=== PATIENT | male | born 1995 | race Caucasian/White ===

== ENCOUNTER 2017-04-09 18:08 | Emergency (ER) | payer OTHER ==
[2017-04-09 18:19] VITALS: BP 149/80; PULSE 68; O2SAT 99
[2017-04-09] MEDS ORDERED: Tylenol #3 Tablet PO ONE (18:31)
--- NOTE | 2017-04-09 18:38 | ERPHSYRPT ---
- History of Present Illness Time Seen by Provider: 04/09/17 18:20 Source: patient Exam Limitations: clinical condition Patient Subjective Stated Complaint: PT STATES HE HAS A TOOTHACHE RELATED TO A BROKEN TOOTH ON HIS RIGHT UPPER SIDE. STATES THE PAIN IS SEVERE AND HAS WOKEN HIM FROM SLEEP. PT REPORTS CALLING SEVERAL DENTISTS TODAY AND STATES NONE CAN SEE HIM UNTIL MAY AT THE EARLIEST. Triage Nursing Assessment: PT IS AOX3, AMBULATORY TO COT WITHOUT DIFFICULTIES, SKIN IS PWD, RESPS ARE EASY AND NON LABORED. A BROKEN TOOTH IS NOTED TO THE RIGHT UPPER MOUTH. DENTAL CARRIES NOTED THROUGHOUT MOUTH. NO REDNESS OR INFLAMMATION NOTED TO THE GUM. PT REPORTS PAIN TO THE MOUTH THAT RADIATES UP ACROSS HIS CHEEK TO HIS EYE. Physician History: PATIENT COMPLAINS OF TOOTHACHE X 3 DAYS, DENIES FEVER, DIFFICULTY BREATHING OR SWALLOWING. Timing/Duration: gradual onset Severity: severe ENT Location: dental Prearrival Treatment: no prearrival treatment Modifying Factors: Improves With: nothing Associated Symptoms: jaw pain Allergies/Adverse Reactions: No Known Drug Allergies Allergy (Verified 04/09/17 18:19) Hx Tetanus, Diphtheria Vaccination/Date Given: No Hx Influenza Vaccination/Date Given: No Hx Pneumococcal Vaccination/Date Given: No Immunizations Up to Date: Yes - Review of Systems Constitutional: No Symptoms Eyes: No Symptoms Ears, Nose, & Throat: Mouth Pain Respiratory: No Symptoms Cardiac: No Symptoms - Past Medical History Pertinent Past Medical History: No Psycho-Social History: Depression - Past Surgical History Past Surgical History: Yes Gastrointestinal: Appendectomy - Social History Smoking Status: Current every day smoker How long have you smoked: 10 Exposure to second hand smoke: Yes Drug Use: none Patient Lives Alone: Yes - Nursing Vital Signs Nursing Vital Signs: Initial Vital Signs Temperature 98.5 F Temperature Source Oral Pulse Rate 68 Respiratory Rate 20 Blood Pressure [Right Arm] 149/80 Pain Intensity 10 - Physical Exam General Appearance: mild distress Eye Exam: bilateral eye: PERRL, EOMI Nasal Exam: normal inspection Throat Exam: dental tenderness (CARES BILATE UPPER 1ST AND 2ND MOLARS, NO GINGIVAL SWELLING) Neck Exam: normal inspection, non-tender Neurologic Exam: alert, oriented x 3 SpO2: 99 Oxygen Delivery: Room Air - Progress Progress: pain not gone completely Progress Note: 04/09/17 18:34 PATIENT ADMINISTERED TYLENOL #3 ORALLY Counseled pt/family regarding: diagnosis, need for follow-up - Departure Time of Disposition: 18:45 Departure Disposition: Home Clinical Impression: DENTAL CARIES Condition: Stable Critical Care Time: No Instructions: Tooth Decay Additional Instructions: ANTIBIOTIC AMOXICILLIN 500MG EVERY 8 HOURS FOR 10 DAYS. TYLENOL #3 EVERY 4 HOURS FOR PAIN. FOLLOWUP WITH YOUR DENTIST AND PRIMARY CARE PHYSICIAN. Prescriptions: Codeine Phosphate/APAP #3 [Tylenol #3 Tablet] 1 tab PO Q4H PRN PRN #12 tablet PRN Reason: Pain Amoxicillin 500 mg PO TID #30 tablet
[2017-04-09] MEDS ORDERED: Tylenol #3 Tablet ONE ×2 (18:40→18:46)
== END 2017-04-09 18:59 | disposition home or self-care (01) ==
LOC: ED 18:08
DX: K02.9 Dental caries, unspecified (principal)
CPT/HCPCS: 99284; A9270-GY

== ENCOUNTER 2018-05-25 11:45 | Emergency (ER) | payer OTHER ==
--- NOTE | 2018-05-25 12:09 | ERPHSYRPT ---
- History of Present Illness Time Seen by Provider: 05/25/18 11:59 Historian: patient, family Exam Limitations: no limitations Patient Subjective Stated Complaint: pt reports getting teeth pulled tessy 4 days ago-states that since then he has felt tired and his abd has hurt-reports his last bm this morning unsure if it was hard or diarrhea-denies difficulty with urination-denies fever Triage Nursing Assessment: pt pink warm and [id number] tender to palp-resp easy and nonlabored Physician History: The patient is a 22-year-old male with his mother complaining of weakness, abdominal pain, not feeling well. He had 4 teeth pulled 4 days ago area he has been taking amoxicillin as prescribed. He took who for the first 2 days but then quit taking them yesterday. He ate solid food first time last night his abdomen began hurting yesterday. He states his looked in his mouth and when she did, he became very sweaty and pale. That has resolved. He thinks he' s been having fever and chills. He had a bowel movement. His past medical history significant for an appendectomy at age 5. Timing/Duration: day(s) (2), gradual onset, worse Activities at Onset: none Quality: fullness Abdominal Pain Onset Location: generalized abdomen Pain Radiation: no radiation Severity of Pain-Max: moderate Severity of Pain-Current: moderate Modifying Factors: Improves With: nothing Associated Symptoms: fatigue, weakness Previous symptoms: no prior history Allergies/Adverse Reactions: No Known Drug Allergies Allergy (Verified 05/25/18 11:56) Home Medications: Amoxicillin 500 mg Cap [Amoxil 500 mg] 500 mg PO UD 05/25/18 [History] Hydrocodone/Acetaminophen [Hydrocodone-Acetamin 5-325 mg] 1 tab PO UD 05/25/18 [ History] Hx Tetanus, Diphtheria Vaccination/Date Given: Yes Hx Influenza Vaccination/Date Given: No Hx Pneumococcal Vaccination/Date Given: No Immunizations Up to Date: Yes - Review of Systems Constitutional: Weakness Eyes: No Symptoms Ears, Nose, & Throat: No Symptoms Respiratory: No Cough, No Dyspnea Cardiac: No Symptoms Abdominal/Gastrointestinal: Abdominal Pain Genitourinary Symptoms: No Dysuria Musculoskeletal: No Back Pain, No Neck Pain Skin: No Rash Neurological: No Dizziness, No Focal Weakness, No Sensory Changes Psychological: No Symptoms Endocrine: No Symptoms Hematologic/Lymphatic: No Symptoms Immunological/Allergic: No Symptoms All Other Systems: Reviewed and Negative - Past Medical History Pertinent Past Medical History: No Psycho-Social History: Depression - Past Surgical History Past Surgical History: Yes Gastrointestinal: Appendectomy - Social History Smoking Status: Current every day smoker How long have you smoked: yrs Exposure to second hand smoke: Yes Drug Use: none Patient Lives Alone: Yes - Nursing Vital Signs Nursing Vital Signs: Initial Vital Signs Temperature 98.3 F 05/25/18 11:53 Pulse Rate 60 05/25/18 11:53 Respiratory Rate 18 05/25/18 11:53 Blood Pressure 140/73 05/25/18 11:53 O2 Sat by Pulse Oximetry 99 05/25/18 11:53 Pain Scale Pain Intensity 0 - Physical Exam General Appearance: mild distress Eye Exam: PERRL/EOMI, eyes nml inspection Ears, Nose, Throat Exam: pharynx normal, moist mucous membranes, other (healing gums from recent teeth extraction) Neck Exam: normal inspection, non-tender, supple, full range of motion Respiratory Exam: normal breath sounds, lungs clear, No respiratory distress Cardiovascular Exam: regular rate/rhythm, normal heart sounds Gastrointestinal/Abdomen Exam: tenderness (epigastric and RUQ) Rectal Exam: not done Back Exam: normal inspection, normal range of motion, No CVA tenderness, No vertebral tenderness Extremity Exam: normal inspection, normal range of motion, pelvis stable Neurologic Exam: alert Skin Exam: normal color, warm, dry SpO2 Interpretation: normal SpO2: 99 Oxygen Delivery: Room Air - Radiology Exams Abdomen X-ray Interpretation: Interpreted by me, Negative Ordered Tests: Active Orders 24 hr Category Date Time Status Clean Catch Urine Specimen STAT Care 05/25/18 12:14 Active IV Insertion STAT Care 05/25/18 12:14 Active KUB Stat Exams 05/25/18 12:14 Taken CBC W DIFF Stat Lab 05/25/18 12:45 Completed CMP Stat Lab 05/25/18 12:45 Completed LIPASE Stat Lab 05/25/18 12:45 Completed Lactic Acid Stat Lab 05/25/18 12:40 Completed Manual Differential NC Stat Lab 05/25/18 12:45 Completed UA W/ MICROSCOPIC Stat Lab 05/25/18 12:37 Completed Urine Triage Profile Stat Lab 05/25/18 12:37 Received Medication Summary Discontinued Medications Generic Name Dose Route Start Last Admin Trade Name Lukas PRN Reason Stop Dose Admin Famotidine 20 mg 05/25/18 12:14 05/25/18 12:46 Pepcid 20 Mg Vial IV 05/25/18 12:15 20 mg STAT ONE Administration Famotidine Confirm 05/25/18 12:41 Pepcid 20 Mg Vial Administered 05/25/18 12:42 Dose 20 mg IV .STK-MED ONE Sodium Chloride 1,000 mls @ 999 mls/hr 05/25/18 12:14 05/25/18 12:43 Sodium Chloride 0.9% 1000 Ml IV 05/25/18 13:14 999 mls/hr .Q1H1M STA Administration Sodium Chloride Confirm 05/25/18 12:41 Sodium Chloride 0.9% 1000 Ml Administered 05/25/18 12:42 Dose 1,000 mls @ ud .ROUTE .STK-MED ONE Ondansetron HCl 4 mg 05/25/18 12:14 05/25/18 12:45 Zofran 4 Mg/2 Ml Vial IV 05/25/18 12:15 4 mg STAT ONE Administration Ondansetron HCl Confirm 05/25/18 12:40 Zofran 4 Mg/2 Ml Vial Administered 05/25/18 12:41 Dose 4 mg .ROUTE .STK-MED ONE Lab/Rad Data: Laboratory Result Diagrams 05/25/18 12:45 05/25/18 12:45 Laboratory Results 05/25/18 05/25/18 05/25/18 Range/Units 12:45 12:45 12:40 WBC 5.3 (4.0-10.5) K/mm3 RBC 5.46 (4.1-5.6) M/mm3 Hgb 16.3 (12.5-18.0) gm/dl Hct 47.6 (42-50) % MCV 87.2 (78-100) fl MCH 29.9 (26-32) pg MCHC 34.2 (32-36) g/dl RDW 13.3 (11.5-14.0) % Plt Count 172 (150-450) K/mm3 MPV 13.5 H (6-9.5) fl Absolute Granulocytes 2.51 (1.4-6.9) Sodium 144 (137-145) mmol/L Potassium 4.0 (3.5-5.1) mmol/L Chloride 106 (98-107) mmol/L Carbon Dioxide 27 (22-30) mmol/L Anion Gap 14.9 (5-15) MEQ/L BUN 7 L (9-20) mg/dL Creatinine 0.75 (0.66-1.25) mg/dL Estimated GFR > 60.0 ML/MIN Glucose 100 (74-106) mg/dL Lactic Acid 0.9 (0.4-2.0) Calcium 9.8 (8.4-10.2) mg/dL Total Bilirubin 0.50 (0.2-1.3) mg/dL AST 13 L (17-59) U/L ALT 14 (0-50) U/L Alkaline Phosphatase 46 (38-126) U/L Serum Total Protein 7.6 (6.3-8.2) g/dL Albumin 4.9 (3.5-5.0) g/dL Lipase 48 (23-300) U/L Ur Collection Type Urine Color (YELLOW) Urine Appearance (CLEAR) Urine pH (5-6) Ur Specific [place] (1.005-1.025) Urine Protein (Negative) Urine Ketones (NEGATIVE) Urine Blood (0-5) Marlon/ul Urine Nitrite (NEGATIVE) Urine Bilirubin (NEGATIVE) Urine Urobilinogen (0-1) mg/dL Ur Leukocyte Esterase (NEGATIVE) Ur Epithelial Cells (FEW) /HPF Amorphous Crystals (NEGATIVE) /HPF Urine Culture Reflexed (NO) Urine Glucose (NEGATIVE) mg/dL Urine Opiates Level (NEGATIVE) Ur Methadone (NEGATIVE) Urine Barbiturates (NEGATIVE) Ur Phencyclidine (PCP) (NEGATIVE) Urine Amphetamine (NEGATIVE) U Benzodiazepine Level (NEGATIVE) Urine Cocaine (NEGATIVE) Urine Marijuana (THC) (NEGATIVE) Specimen Received 05/25/18 05/25/18 Range/Units 12:37 12:37 WBC (4.0-10.5) K/mm3 RBC (4.1-5.6) M/mm3 Hgb (12.5-18.0) gm/dl Hct (42-50) % MCV (78-100) fl MCH (26-32) pg MCHC (32-36) g/dl RDW (11.5-14.0) % Plt Count (150-450) K/mm3 MPV (6-9.5) fl Absolute Granulocytes (1.4-6.9) Sodium (137-145) mmol/L Potassium (3.5-5.1) mmol/L Chloride (98-107) mmol/L Carbon Dioxide (22-30) mmol/L Anion Gap (5-15) MEQ/L BUN (9-20) mg/dL Creatinine (0.66-1.25) mg/dL Estimated GFR ML/MIN Glucose (74-106) mg/dL Lactic Acid (0.4-2.0) Calcium (8.4-10.2) mg/dL Total Bilirubin (0.2-1.3) mg/dL AST (17-59) U/L ALT (0-50) U/L Alkaline Phosphatase (38-126) U/L Serum Total Protein (6.3-8.2) g/dL Albumin (3.5-5.0) g/dL Lipase (23-300) U/L Ur Collection Type VOID Urine Color YELLOW (YELLOW) Urine Appearance CLOUDY (CLEAR) Urine pH 8.0 (5-6) Ur Specific [place] 1.010 (1.005-1.025) Urine Protein NEGATIVE (Negative) Urine Ketones NEGATIVE (NEGATIVE) Urine Blood NEGATIVE (0-5) Marlon/ul Urine Nitrite NEGATIVE (NEGATIVE) Urine Bilirubin NEGATIVE (NEGATIVE) Urine Urobilinogen NORMAL (0-1) mg/dL Ur Leukocyte Esterase NEGATIVE (NEGATIVE) Ur Epithelial Cells FEW (FEW) /HPF Amorphous Crystals MANY (NEGATIVE) /HPF Urine Culture Reflexed NO (NO) Urine Glucose NEGATIVE (NEGATIVE) mg/dL Urine Opiates Level NEGATIVE (NEGATIVE) Ur Methadone NEGATIVE (NEGATIVE) Urine Barbiturates NEGATIVE (NEGATIVE) Ur Phencyclidine (PCP) NEGATIVE (NEGATIVE) Urine Amphetamine NEGATIVE (NEGATIVE) U Benzodiazepine Level NEGATIVE (NEGATIVE) Urine Cocaine NEGATIVE (NEGATIVE) Urine Marijuana (THC) POSITIVE (NEGATIVE) Specimen Received 05/25/2018 1300 - Progress Progress: improved - Departure Time of Disposition: 14:03 Departure Disposition: Home Clinical Impression: Abdominal pain Condition: Stable Critical Care Time: No Referrals: LILY HINTON MD [Primary Care Provider] - Additional Instructions: You had abdominal pain that we treated with Pepcid 20 mg and Zofran 4 mg by IV in the ER. You were also given IV fluids in the ER. Continue to take Zofran 4 mg ODT every 6 hours as needed. Follow-up with primary medical doctor on Sunday if her condition has not resolved completely. Prescriptions: Ondansetron ODT 4 MG [Zofran Odt 4 mg] 1 tab PO Q6H PRN PRN #10 tab.rapdis PRN Reason: Nausea/Vomiting
[2018-05-25] MEDS ORDERED: Zofran 4 MG/2 ML VIAL IV ONE (12:14)
[2018-05-25] MEDS ORDERED: Pepcid 20 MG VIAL IV ONE ×2 (12:14→12:41)
[2018-05-25] MEDS ORDERED: Sodium Chloride 0.9% 1000 ML 1,000 ML IV STA (12:14)
[2018-05-25] MEDS ORDERED: Zofran 4 MG/2 ML VIAL ONE (12:40)
[2018-05-25] MEDS ORDERED: Sodium Chloride 0.9% 1000 ML 1,000 ML ONE (12:41)
[2018-05-25 13:09] LABS: Granulocyte Absolute (ANC) 2.51 (1.4-6.9); Hematocrit 47.6 % (42-50); Hemoglobin 16.3 gm/dl (12.5-18.0); Mean Cell Volume 87.2 fl (78-100); Mean Corpuscular Hemoglobin 29.9 pg (26-32); Mean Corpuscular Hgb Concent. 34.2 g/dl (32-36); Mean Platelet Volume 13.5 fl (6-9.5); Platelet Count 172 K/mm3 (150-450); Red Blood Count 5.46 M/mm3 (4.1-5.6); Red Cell Distribution Width 13.3 % (11.5-14.0); White Blood Count 5.3 K/mm3 (4.0-10.5)
[2018-05-25 13:13] LABS: Amourphous Crystal MANY /HPF (NEGATIVE); Appearance CLOUDY (CLEAR); Bilirubin NEGATIVE (NEGATIVE); Blood NEGATIVE Ery/ul (0-5); Epithelial Cells FEW /HPF (FEW); Glucose NEGATIVE (NEGATIVE); Ketones NEGATIVE (NEGATIVE); Leukocyte Esterase NEGATIVE (NEGATIVE); Nitrite NEGATIVE (NEGATIVE); Protein,Urine Dip NEGATIVE (Negative); Urobilinogen NORMAL mg/dL (0-1)
[2018-05-25 13:33] LABS: ALBUMIN 4.9 g/dL (3.5-5.0); ALKALINE PHOSPHATASE 46 U/L (38-126); ANION GAP 14.9 MEQ/L (5-15); BLOOD UREA NITROGEN 7 mg/dL (9-20); CHLORIDE 106 mmol/L (98-107); Calcium 9.8 mg/dL (8.4-10.2); Carbon Dioxide 27 mmol/L (22-30); Creatinine 1 0.75 mg/dL (0.66-1.25); Glucose 100 mg/dL (74-106); LIPASE 48 U/L (23-300); SGOT/AST 13 U/L (17-59); SGPT/ALT 14 U/L (0-50); SODIUM 144 mmol/L (137-145); Total Protein 7.6 g/dL (6.3-8.2)
[2018-05-25 13:43] LABS: Amphetamine,Urine NEGATIVE (NEGATIVE); Barbiturate,Urine NEGATIVE (NEGATIVE); Benzodiazepine,Urine NEGATIVE (NEGATIVE); Cocaine,Urine NEGATIVE (NEGATIVE); Methadone,Urine NEGATIVE (NEGATIVE); Opiate,Urine NEGATIVE (NEGATIVE); PCP,Urine NEGATIVE (NEGATIVE); THC,Urine POSITIVE (NEGATIVE)
[2018-05-25 14:18] VITALS: BP 143/56; PULSE 60; O2SAT 97
[2018-05-25 14:55] LABS: BAND 2 % (0.0-2.0); Basophil 1 % (0.0-1.0); Lymphocytes 33 % (24-44); Monocyte 9 % (0.0-12.0); Neutrophils 55 % (36.-66.); Platelet Estimate NORMAL (NORMAL); Total Cells Counted 100
--- NOTE | 2018-05-25 21:27 | XRAY ---
Indication: Abdominal pain, nausea, and vomiting. Comparison: November 21, 2010. KUB again nonacute and nonobstructed. Solid organs and osseous structures unremarkable. No new/acute findings.
== END 2018-05-25 14:19 | disposition home or self-care (01) ==
LOC: ED 11:45
DX: R10.9 Unspecified abdominal pain (principal); Z98.818 Other dental procedure status
CPT/HCPCS: 36000; 36415; 74018; 80053; 80307; 81000; 83605; 83690; 85025; 96360; 96374; 96375; 99284; J2405

== ENCOUNTER 2018-06-15 10:52 | Emergency (ER) | payer OTHER ==
[2018-06-15] MEDS ORDERED: GI COCKTAIL 45 ML (Maalox/Lidocaine) PO ONE (11:06)
[2018-06-15] MEDS ORDERED: TORAdol 30 mg Injection IV ONE (11:06)
[2018-06-15] MEDS ORDERED: MAALOX ES 30 ML UNIT DOSE ONE (11:12)
[2018-06-15] MEDS ORDERED: XYLOCAINE HCl Viscous ONE (11:12)
--- NOTE | 2018-06-15 11:12 | ERPHSYRPT ---
- History of Present Illness Time Seen by Provider: 06/15/18 11:00 Historian: patient Exam Limitations: no limitations Patient Subjective Stated Complaint: cough and pain with breathing in chest x 3 days. Triage Nursing Assessment: alert and in no distress. SOB and pain in mid chest with breathing.. productive cough with yellow sputum. lungs clear bilaterally. Physician History: 23 y/o male comes to the ER with complaints of epigastric and left sided abdominal pain that strated 2 days ago. Pt describes the pain as sharp, constant , 7/10, worse with inspiration and pt has not taken any pain meds. Pt also admits to productive cough for the last 3 days. Pt denies any fever, chills, shortness of breath, palpitations or dizziness. Timing/Duration: day(s) Activities at Onset: none Quality: sharpness Abdominal Pain Onset Location: LUQ, epigastric Pain Radiation: no radiation Severity of Pain-Max: moderate Severity of Pain-Current: moderate Modifying Factors: Improves With: nothing Associated Symptoms: chest pain Previous symptoms: no prior history Allergies/Adverse Reactions: No Known Drug Allergies Allergy (Verified 05/25/18 11:56) Home Medications: Amoxicillin 500 mg Cap [Amoxil 500 mg] 500 mg PO UD 05/25/18 [History] Hydrocodone/Acetaminophen [Hydrocodone-Acetamin 5-325 mg] 1 tab PO UD 05/25/18 [ History] Hx Tetanus, Diphtheria Vaccination/Date Given: Yes Hx Influenza Vaccination/Date Given: No Hx Pneumococcal Vaccination/Date Given: No - Review of Systems Constitutional: No Fever, No Chills Eyes: No Symptoms Ears, Nose, & Throat: No Symptoms Respiratory: No Cough, No Dyspnea Cardiac: No Chest Pain, No Edema, No Syncope Abdominal/Gastrointestinal: Abdominal Pain, No Nausea, No Vomiting, No Diarrhea , No Constipation, No Hematochezia, No Melena Genitourinary Symptoms: No Dysuria Musculoskeletal: No Back Pain, No Neck Pain Skin: No Rash Neurological: No Dizziness, No Focal Weakness, No Sensory Changes Psychological: No Symptoms Endocrine: No Symptoms All Other Systems: Reviewed and Negative - Past Medical History Pertinent Past Medical History: Yes Psycho-Social History: Depression - Past Surgical History Past Surgical History: Yes Gastrointestinal: Appendectomy - Social History Smoking Status: Current every day smoker How long have you smoked: yrs Exposure to second hand smoke: No Drug Use: none Patient Lives Alone: No - Nursing Vital Signs Nursing Vital Signs: Initial Vital Signs Temperature 97.8 F 06/15/18 11:02 Pulse Rate 85 06/15/18 11:02 Respiratory Rate 20 06/15/18 11:02 Blood Pressure 136/76 06/15/18 11:02 O2 Sat by Pulse Oximetry 98 06/15/18 11:02 Pain Scale Pain Intensity 7 - Physical Exam General Appearance: no apparent distress, alert Eye Exam: PERRL/EOMI, eyes nml inspection Ears, Nose, Throat Exam: normal ENT inspection, pharynx normal, moist mucous membranes Neck Exam: normal inspection, non-tender, supple, full range of motion Respiratory Exam: normal breath sounds, lungs clear, No chest tenderness, No respiratory distress Cardiovascular Exam: regular rate/rhythm, normal heart sounds Gastrointestinal/Abdomen Exam: soft, normal bowel sounds, tenderness, No distention, No mass Back Exam: normal inspection, normal range of motion, No CVA tenderness, No vertebral tenderness Extremity Exam: normal inspection, normal range of motion, pelvis stable Neurologic Exam: alert, oriented x 3, cooperative, normal mood/affect, nml cerebellar function, sensation nml, No motor deficits Skin Exam: normal color, warm, dry SpO2: 98 Oxygen Delivery: Room Air - Course Nursing assessment & vital signs reviewed: Yes EKG Interpreted by Me: RATE, NORMAL AXIS, NORMAL INTERVALS, NORMAL QRS, NORMAL ST-T Ordered Tests: Active Orders 24 hr Category Date Time Status IV Insertion STAT Care 06/15/18 11:06 Active ABDOMEN 2 VIEW Stat Exams 06/15/18 11:32 Completed CHEST 2 VIEWS (PA AND LAT) Stat Exams 06/15/18 11:06 Completed AMYLASE Stat Lab 06/15/18 11:00 Completed CBC W DIFF Stat Lab 06/15/18 11:00 Completed CMP Stat Lab 06/15/18 11:00 Completed LIPASE Stat Lab 06/15/18 11:00 Completed Manual Differential NC Stat Lab 06/15/18 11:00 Completed TROPONIN Q3H Lab 06/15/18 11:00 Completed TROPONIN Q3H Lab 06/15/18 14:15 Ordered TROPONIN Q3H Lab 06/15/18 17:15 Ordered TROPONIN Q3H Lab 06/15/18 20:15 Ordered TROPONIN Q3H Lab 06/15/18 23:15 Ordered Medication Summary Discontinued Medications Generic Name Dose Route Start Last Admin Trade Name Freq PRN Reason Stop Dose Admin Al Hydrox/Mg Hydrox/Simethicone Confirm 06/15/18 11:12 Maalox Es 30 Ml Unit Dose Administered 06/15/18 11:13 Dose 30 ml .ROUTE .STK-MED ONE Ketorolac Tromethamine 30 mg 06/15/18 11:06 06/15/18 11:24 Toradol 30 Mg Injection IV 06/15/18 11:07 30 mg STAT ONE Administration Ketorolac Tromethamine Confirm 06/15/18 11:13 Toradol 30 Mg Injection Administered 06/15/18 11:14 Dose 30 mg .ROUTE .STK-MED ONE Lidocaine HCl Confirm 06/15/18 11:12 Xylocaine Hcl Viscous * Administered 06/15/18 11:13 Dose 15 ml .ROUTE .STK-MED ONE Magnesium Hydroxide 45 ml 06/15/18 11:06 06/15/18 11:25 Gi Cocktail 45 Ml (Maalox/Lidocaine) PO 06/15/18 11:07 45 ml STAT ONE Administration Lab/Rad Data: Laboratory Result Diagrams 06/15/18 11:00 06/15/18 11:00 Laboratory Results 06/15/18 06/15/18 06/15/18 Range/Units 11:00 11:00 11:00 WBC 5.6 (4.0-10.5) K/mm3 RBC 5.47 (4.1-5.6) M/mm3 Hgb 16.3 (12.5-18.0) gm/dl Hct 48.3 (42-50) % MCV 88.3 (78-100) fl MCH 29.8 (26-32) pg MCHC 33.7 (32-36) g/dl RDW 13.8 (11.5-14.0) % Plt Count 175 (150-450) K/mm3 MPV 13.1 H (6-9.5) fl Absolute Granulocytes 2.60 (1.4-6.9) Segmented Neutrophils 56 (36.-66.) % Lymphocytes (Manual) 34 (24-44) % Monocytes (Manual) 8 (0.0-12.0) % Eosinophils (Manual) 2 (0.00-3.0) % Platelet Estimate NORMAL (NORMAL) RBC Morphology ABNORMAL Anisocytosis 1+ Sodium 145 (137-145) mmol/L Potassium 4.0 (3.5-5.1) mmol/L Chloride 106 (98-107) mmol/L Carbon Dioxide 27 (22-30) mmol/L Anion Gap 17.1 H (5-15) MEQ/L BUN 7 L (9-20) mg/dL Creatinine 0.77 (0.66-1.25) mg/dL Estimated GFR > 60.0 ML/MIN Glucose 91 (74-106) mg/dL Calcium 10.1 (8.4-10.2) mg/dL Total Bilirubin 0.80 (0.2-1.3) mg/dL AST 19 (17-59) U/L ALT 18 (0-50) U/L Alkaline Phosphatase 38 (38-126) U/L Troponin I < 0.012 (0.000-0.034) ng/mL Serum Total Protein 8.2 (6.3-8.2) g/dL Albumin 5.4 H (3.5-5.0) g/dL Amylase 51 (30-110) U/L Lipase 34 (23-300) U/L - Progress Progress: improved Progress Note: 06/15/18 12:58 Pt feels better after receiving GI cocktail and toradol. The labs and imaging are within normal limits. Pt will be d/c home on toradol for muscles strain. - Departure Time of Disposition: 12:58 Departure Disposition: Home Clinical Impression: Abdominal muscle strain Qualifiers: Encounter type: initial encounter Qualified Code(s): S39.011A - Strain of muscle, fascia and tendon of abdomen, initial encounter Condition: Stable Critical Care Time: No Referrals: LILY HINTON MD [ACTIVE STAFF] - Instructions: Abdominal Muscle Strain (DC) Additional Instructions: Return to the ER if you should have worsening abdominal pain, nausea, vomiting, chest pain or shortness of breath. Prescriptions: Ketorolac Tromethamine [Toradol] 10 mg PO QID PRN #20 tablet PRN Reason: Pain
[2018-06-15] MEDS ORDERED: TORAdol 30 mg Injection ONE (11:13)
[2018-06-15 11:28] LABS: Hematocrit 48.3 % (42-50); Hemoglobin 16.3 gm/dl (12.5-18.0); Mean Cell Volume 88.3 fl (78-100); Mean Corpuscular Hemoglobin 29.8 pg (26-32); Mean Corpuscular Hgb Concent. 33.7 g/dl (32-36); Mean Platelet Volume 13.1 fl (6-9.5); Platelet Count 175 K/mm3 (150-450); Red Blood Count 5.47 M/mm3 (4.1-5.6); Red Cell Distribution Width 13.8 % (11.5-14.0); White Blood Count 5.6 K/mm3 (4.0-10.5)
[2018-06-15 11:55] LABS: ALBUMIN 5.4 g/dL (3.5-5.0); ALKALINE PHOSPHATASE 38 U/L (38-126); AMYLASE 51 U/L (30-110); ANION GAP 17.1 MEQ/L (5-15); BLOOD UREA NITROGEN 7 mg/dL (9-20); CHLORIDE 106 mmol/L (98-107); Calcium 10.1 mg/dL (8.4-10.2); Carbon Dioxide 27 mmol/L (22-30); Creatinine 1 0.77 mg/dL (0.66-1.25); Glucose 91 mg/dL (74-106); LIPASE 34 U/L (23-300); SGOT/AST 19 U/L (17-59); SGPT/ALT 18 U/L (0-50); SODIUM 145 mmol/L (137-145); Total Protein 8.2 g/dL (6.3-8.2)
--- NOTE | 2018-06-15 12:18 | XRAY ---
Indication: Lower chest/upper abdominal pain 3 days. Nausea and vomiting. Comparison: May 25, 2018. 2 views of the abdomen remain nonacute and nonobstructed. Solid organs and osseous structures unremarkable. Lung bases clear. No new/acute findings.
--- NOTE | 2018-06-15 12:20 | XRAY ---
Indication: Lower chest/upper abdominal pain 3 days. Nausea and vomiting. Comparison: August 05, 2013. PA/lateral chest hyperinflated and clear. Heart and mediastinal structures within normal limits. Bony thorax intact. Impression: Nonacute hyperinflated chest.
[2018-06-15 12:37] LABS: ANISOCYTOSIS 1+; Eosinophil 2 % (0.00-3.0); Lymphocytes 34 % (24-44); Monocyte 8 % (0.0-12.0); Neutrophils 56 % (36.-66.); Platelet Estimate NORMAL (NORMAL); Total Cells Counted 100
[2018-06-15 13:00] VITALS: O2SAT 98
[2018-06-15 13:06] VITALS: BP 154/79
[2018-06-15 13:13] VITALS: PULSE 76
== END 2018-06-15 13:15 | disposition home or self-care (01) ==
LOC: ED 10:52
DX: S39.011A Strain of muscle, fascia and tendon of abdomen, initial encounter (principal); R10.13 Epigastric pain; R10.12 Left upper quadrant pain; Z79.899 Other long term (current) drug therapy
CPT/HCPCS: 36000; 36415; 71046; 74021; 80053; 82150; 83690; 84484; 85025; 96374; 99284; J1885; A9270-GY

== ENCOUNTER 2018-06-16 21:34 | Emergency (ER) | payer OTHER ==
--- NOTE | 2018-06-16 21:38 | ERPHSYRPT ---
- History of Present Illness Time Seen by Provider: 06/16/18 21:37 Source: patient Exam Limitations: no limitations Physician History: 23 y/o right handed white male presents with laceration to right hand and right forearm after punching a window out of anger. pt does not recall his last tetanus injection. he denies illicit drug or alcohol use. 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) Quality: painful Severity: mild Location: hands (right), extremities (right forearm) Possible Causes: other (punched through a marco a) Associated Symptoms: No difficulty breathing, No fever, No headache, No hives, No jaundice, No malaise, No nasal congestion Allergies/Adverse Reactions: No Known Drug Allergies Allergy (Verified 06/16/18 22:22) Hx Tetanus, Diphtheria Vaccination/Date Given: Yes (does not recall date) Hx Influenza Vaccination/Date Given: No Hx Pneumococcal Vaccination/Date Given: No - Review of Systems Constitutional: No Symptoms, No Fever, No Chills Eyes: No Symptoms, No Eye Pain Ears, Nose, & Throat: No Symptoms, No Ear Pain Respiratory: No Symptoms, No Cough, No Dyspnea, No Stridor, No Wheezing Cardiac: No Symptoms, No Chest Pain, No Palpitations, No Syncope Abdominal/Gastrointestinal: No Symptoms, No Abdominal Pain, No Nausea, No Vomiting, No Diarrhea Genitourinary Symptoms: No Symptoms, No Dysuria, No Frequency, No Hematuria Musculoskeletal: No Symptoms, No Back Pain, No Fall Skin: Other (right upper ext) Neurological: No Symptoms Psychological: No Symptoms Endocrine: No Symptoms Hematologic/Lymphatic: No Symptoms Immunological/Allergic: No Symptoms All Other Systems: Reviewed and Negative - Past Medical History Pertinent Past Medical History: Yes Neurological History: No Pertinent History ENT History: No Pertinent History Cardiac History: No Pertinent History Respiratory History: No Pertinent History Endocrine Medical History: No Pertinent History Musculoskeletal History: No Pertinent History GI Medical History: No Pertinent History Psycho-Social History: Depression Male Reproductive Disorders: No Pertinent History - Past Surgical History Past Surgical History: Yes Neuro Surgical History: No Pertinent History Cardiac: No Pertinent History Respiratory: No Pertinent History Gastrointestinal: Appendectomy Genitourinary: No Pertinent History Musculoskeletal: No Pertinent History - Social History Smoking Status: Current every day smoker How long have you smoked: yrs Exposure to second hand smoke: No Drug Use: none Patient Lives Alone: No - Nursing Vital Signs Nursing Vital Signs: Initial Vital Signs Temperature 97.5 F 06/16/18 21:35 Pulse Rate 97 H 06/16/18 21:35 Respiratory Rate 26 H 06/16/18 21:35 Blood Pressure 131/91 06/16/18 21:35 O2 Sat by Pulse Oximetry 98 06/16/18 21:35 Pain Scale Pain Intensity 0 - Physical Exam General Appearance: mild distress, alert, anxiety Eye Exam: PERRL/EOMI, eyes nml inspection Ears, Nose, Throat Exam: normal ENT inspection Neck Exam: normal inspection, non-tender, supple, full range of motion Respiratory Exam: normal breath sounds, lungs clear, airway intact, No chest tenderness, No respiratory distress, No accessory muscle use, No wheezing, No stridor Cardiovascular Exam: regular rate/rhythm, normal peripheral pulses Gastrointestinal/Abdomen Exam: soft Rectal Exam: not done Back Exam: normal inspection, normal range of motion, No CVA tenderness, No vertebral tenderness Extremity Exam: lacerations (x2 volar aspect one 4cm and a second 2.5cm "L" shaped. mild skine edge bleeding. no fb. nv intact. tendon function intact), other (right hand dorsal aspect multiple small superficial with no fb. 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 one 4 cm and second nearby 2.5cm) Wound's Depth, Shape: superficial, linear Wound Explored: in bloodless field Irrigated: Yes (hibiclens saline solution) Hibiclens Prep: Yes Wound Repaired With: Daisetta ( total 11 christian) Layer Closure?: No Sterile Dressing Applied?: Yes - Course Nursing assessment & vital signs reviewed: Yes Ordered Tests: Active Orders 24 hr Category Date Time Status Wound Care STAT Care 06/16/18 22:10 Active Medication Summary Discontinued Medications Generic Name Dose Route Start Last Admin Trade Name Freq PRN Reason Stop Dose Admin Bacitracin Zinc Confirm 06/16/18 21:51 Baciguent Packet Administered 06/16/18 21:52 Dose 2 gm .ROUTE .STK-MED ONE Bacitracin Zinc 1.8 gm 08/26/18 22:10 06/16/18 22:20 Baciguent Packet TP 06/16/18 22:11 1.8 gm STAT ONE Administration Diphtheria/Tetanus/Acell Pertussis 0.5 ml 06/16/18 22:10 06/16/18 22:19 Adacel Vial IM 06/16/18 22:11 0.5 ml .ONCE ONE Administration Diphtheria/Tetanus/Acell Pertussis Confirm 06/16/18 22:17 Adacel Vial Administered 06/16/18 22:18 Dose 0.5 ml IM .STK-MED ONE - Progress Progress: improved Counseled pt/family regarding: diagnosis, need for follow-up - Departure Time of Disposition: 22:42 Departure Disposition: Home Clinical Impression: Abrasion hand, Laceration of forearm without complication Condition: Stable Critical Care Time: No Referrals: ROBIN BURGER [ACTIVE STAFF] - Additional Instructions: keep lacerations site bandage in place for 24 hours. after 24 hours, may remove dressing and wash daily then apply antibiotic ointment. wash all abrasion sites with soap and water and apply antibotic ointment daily. staple removal in 8 to 10 days. use tylenol and ibuprofen for pain.
[2018-06-16] MEDS ORDERED: BACIGUENT PACKET ONE (21:51)
[2018-06-16] MEDS ORDERED: BACIGUENT PACKET TP ONE (22:10)
[2018-06-16] MEDS ORDERED: Adacel Vial IM ONE ×2 (22:10→22:17)
[2018-06-16 22:22] VITALS: O2SAT 98
[2018-06-16 22:38] VITALS: BP 120/79; PULSE 73
== END 2018-06-16 22:50 | disposition home or self-care (01) ==
LOC: ED 21:34
PROC: 0HQDXZZ Repair Right Lower Arm Skin, External Approach (ICD-10-PCS; principal; 2018-06-16)
DX: S51.811A Laceration without foreign body of right forearm, initial encounter (principal); W22.8XXA Striking against or struck by other objects, initial encounter
CPT/HCPCS: 12002; 90471; 90715; 99283; A9270-GY

== ENCOUNTER 2022-02-16 20:16 | Emergency (ER) | payer OTHER ==
--- NOTE | 2022-02-16 20:19 | ERPHSYRPT ---
- History of Present Illness Time Seen by Provider: 02/16/22 20:19 Source: patient, family Exam Limitations: no limitations Physician History: This is a 26-year-old white male patient of Dr. Hinton who presents with multiple complaints including abdominal pain, vomiting, dehydration concerns that started today. He did smoke marijuana earlier today. He denies other i llicit drug use. He does not have a headache. He does not have chest pain he does not have shortness of breath. He denies diarrhea. He has not been exposed anyone with viral illness that he is aware of. Timing/Duration: today Severity: moderate Associated Symptoms: nausea, vomiting, abdominal pain, loss of appetite, wea kness Allergies/Adverse Reactions: No Known Drug Allergies Allergy (Verified 02/16/22 20:17) Hx Tetanus, Diphtheria Vaccination/Date Given: Yes (does not recall date) Hx Influenza Vaccination/Date Given: No Hx Pneumococcal Vaccination/Date Given: No Travel Risk - International Travel Have you traveled outside of the country in past 3 weeks: No - Coronavirus Screening Are you exhibiting any of the following symptoms?: No Close contact with a COVID-19 positive Pt in past 14-21 Days: No - Review of Systems Constitutional: Weakness Eyes: No Symptoms Ears, Nose, & Throat: No Symptoms Respiratory: No Symptoms Cardiac: No Symptoms Abdominal/Gastrointestinal: Abdominal Pain, Nausea, Vomiting, No Diarrhea Genitourinary Symptoms: No Symptoms Musculoskeletal: No Symptoms Skin: No Symptoms Neurological: No Symptoms Psychological: No Symptoms Endocrine: No Symptoms Hematologic/Lymphatic: No Symptoms Immunological/Allergic: No Symptoms All Other Systems: Reviewed and Negative - Past Medical History Pertinent Past Medical History: Yes Neurological History: No Pertinent History ENT History: No Pertinent History Cardiac History: No Pertinent History Respiratory History: No Pertinent History Endocrine Medical History: No Pertinent History Musculoskeletal History: No Pertinent History GI Medical History: No Pertinent History Psycho-Social History: Depression Male Reproductive Disorders: No Pertinent History - Past Surgical History Past Surgical History: Yes Neuro Surgical History: No Pertinent History Cardiac: No Pertinent History Respiratory: No Pertinent History Gastrointestinal: Appendectomy Genitourinary: No Pertinent History Musculoskeletal: No Pertinent History - Social History Smoking Status: Current every day smoker How long have you smoked: yrs Exposure to second hand smoke: No Drug Use: none Patient Lives Alone: No - Nursing Vital Signs Nursing Vital Signs: Initial Vital Signs Temperature 97.2 F 02/16/22 20:18 Pulse Rate 74 02/16/22 20:18 Respiratory Rate 16 02/16/22 20:18 Blood Pressure 124/68 02/16/22 20:18 O2 Sat by Pulse Oximetry 98 02/16/22 20:18 Pain Scale Pain Intensity 0 - Physical Exam General Appearance: no apparent distress, alert, anxiety Eye Exam: PERRL/EOMI, eyes nml inspection Ears, Nose, Throat Exam: normal ENT inspection, moist mucous membranes Neck Exam: normal inspection, non-tender, supple, full range of motion Respiratory Exam: normal breath sounds, lungs clear, airway intact, No chest tenderness, No respiratory distress Cardiovascular Exam: regular rate/rhythm, normal heart sounds, normal peripheral pulses Gastrointestinal/Abdomen Exam: soft, normal bowel sounds, tenderness, other (There is a granuloma in the umbilicus that is small. 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 nml as tested, nml cerebellar function, nml station & gait, sensation nml Skin Exam: normal color, warm, dry Lymphatic Exam: No adenopathy SpO2 Interpretation: normal O2 Delivery: Room Air - Course Nursing assessment & vital signs reviewed: Yes Ordered Tests: Active Orders 24 hr Category Date Time Status Clean Catch Urine Specimen STAT Care 02/16/22 20:40 Active IV Insertion STAT Care 02/16/22 20:40 Active ABDOMEN AND PELVIS W/0 CONTRAS [CT] Stat Exams 02/16/22 20:52 Taken AMYLASE Stat Lab 02/16/22 21:30 Completed CBC W DIFF Stat Lab 02/16/22 21:30 Completed CMP Stat Lab 02/16/22 21:30 Completed CULTURE,URINE Stat Lab 02/16/22 21:43 Received LIPASE Stat Lab 02/16/22 21:30 Completed Lactic Acid Stat Lab 02/16/22 21:05 Completed Lactic Acid Stat Lab 02/16/22 21:30 Completed UA W/RFX CULTURE Stat Lab 02/16/22 21:43 Completed Urine Triage Profile Stat Lab 02/16/22 21:43 Received Medication Summary Generic Name Dose Route Start Last Admin Trade Name Freq PRN Reason Stop Dose Admin Sodium Chloride 1,000 mls @ 999 mls/hr 02/16/22 22:08 02/16/22 22:18 Sodium Chloride 0.9% 1000 Ml IV 02/16/22 23:08 999 mls/hr .Q1H1M STA Administration Discontinued Medications Generic Name Dose Route Start Last Admin Trade Name Lukas PRN Reason Stop Dose Admin Sodium Chloride 1,000 mls @ 999 mls/hr 02/16/22 20:40 02/16/22 21:00 Sodium Chloride 0.9% 1000 Ml IV 02/16/22 21:40 999 mls/hr .Q1H1M STA Administration Sodium Chloride Confirm 02/16/22 20:44 Sodium Chloride 0.9% 1000 Ml Administered 02/16/22 20:45 Dose 1,000 mls @ ud .ROUTE .STK-MED ONE Sodium Chloride Confirm 02/16/22 22:18 Sodium Chloride 0.9% 1000 Ml Administered 02/16/22 22:19 Dose 1,000 mls @ ud .ROUTE .STK-MED ONE Metronidazole 500 mg 02/16/22 22:08 02/16/22 22:19 Metronidazole 500 Mg Tablet PO 02/16/22 22:09 500 mg STAT ONE Administration Metronidazole Confirm 02/16/22 22:18 Metronidazole 500 Mg Tablet Administered 02/16/22 22:19 Dose 500 mg .ROUTE .STK-MED ONE Ondansetron HCl 4 mg 02/16/22 20:40 02/16/22 21:02 Ondansetron Hcl 4 Mg/2 Ml Vial IV 02/16/22 20:41 4 mg STAT ONE Administration Ondansetron HCl Confirm 02/16/22 20:44 Ondansetron Hcl 4 Mg/2 Ml Vial Administered 02/16/22 20:45 Dose 4 mg .ROUTE .STK-MED ONE Lab/Rad Data: Laboratory Result Diagrams 02/16/22 21:30 02/16/22 21:30 Laboratory Results 02/16/22 02/16/22 02/16/22 Range/Units 21:43 21:30 21:30 WBC (4.0-10.5) K/mm3 RBC (4.1-5.6) M/mm3 Hgb (12.5-18.0) gm/dl Hct (42-50) % MCV (78-100) fl MCH (26-32) pg MCHC (32-36) g/dl RDW (11.5-14.0) % Plt Count (150-450) K/mm3 MPV (7.5-11.0) fl Gran % (36.0-66.0) % Eos # (Auto) (0-0.5) Absolute Lymphs (auto) (1.0-4.6) Absolute Monos (auto) (0.0-1.3) Lymphocytes % (24.0-44.0) % Monocytes % (0.0-12.0) % Eosinophils % (0.00-5.0) % Basophils % (0.0-0.4) % Absolute Granulocytes (1.4-6.9) Basophils # (0-0.4) Sodium 139 (137-145) mmol/L Potassium 4.0 (3.5-5.1) mmol/L Chloride 102 (98-107) mmol/L Carbon Dioxide 27 (22-30) mmol/L Anion Gap 13.6 (5-15) MEQ/L BUN 7 L (9-20) mg/dL Creatinine 0.86 (0.66-1.25) mg/dL Estimated GFR > 60.0 ML/MIN Glucose 114 H (74-106) mg/dL Lactic Acid 1.1 (0.4-2.0) Calcium 8.8 (8.4-10.2) mg/dL Total Bilirubin 0.50 (0.2-1.3) mg/dL AST 25 (17-59) U/L ALT 15 (0-50) U/L Alkaline Phosphatase 39 (38-126) U/L Serum Total Protein 7.1 (6.3-8.2) g/dL Albumin 4.3 (3.5-5.0) g/dL Amylase 54 (30-110) U/L Lipase 37 (23-300) U/L Urinalys Dipstick Clnc MAIN LAB Urine Color TATY (YELLOW) Urine Appearance CLEAR (CLEAR) Urine pH 6.0 (5-6) Ur Specific [place] >=1.030 (1.005-1.025) POC Urine Protein Conf 30 (Negative) Urine Ketones TRACE (NEGATIVE) Urine Nitrite NEGATIVE (NEGATIVE) Urine Bilirubin SMALL (NEGATIVE) Urine Urobilinogen 1 (0-1) mg/dL Urine Leukocytes NEGATIVE (NEGATIVE) Urine WBC (Auto) 3-5 (0-5) /HPF Urine RBC (Auto) NONE (0-2) /HPF U Hyaline Cast (Auto) 6-10 (0-2) /LPF U Epithel Cells (Auto) NONE (FEW) /HPF Urine Bacteria (Auto) NONE (NEGATIVE) /HPF Urine RBC NEGATIVE (0-5) Marlon/ul Urine Mucus (Auto) MANY (NEGATIVE) /HPF Ur Culture Indicated? YES Urine Glucose NEGATIVE (NEGATIVE) mg/dL 02/16/22 02/16/22 Range/Units 21:30 21:05 WBC 12.2 H (4.0-10.5) K/mm3 RBC 4.84 (4.1-5.6) M/mm3 Hgb 14.5 (12.5-18.0) gm/dl Hct 43.4 (42-50) % MCV 89.7 (78-100) fl MCH 30.0 (26-32) pg MCHC 33.4 (32-36) g/dl RDW 13.2 (11.5-14.0) % Plt Count 169 (150-450) K/mm3 MPV 13.0 H (7.5-11.0) fl Gran % 87.5 H (36.0-66.0) % Eos # (Auto) 0.10 (0-0.5) Absolute Lymphs (auto) 0.59 L (1.0-4.6) Absolute Monos (auto) 0.81 (0.0-1.3) Lymphocytes % 4.8 L (24.0-44.0) % Monocytes % 6.7 (0.0-12.0) % Eosinophils % 0.8 (0.00-5.0) % Basophils % 0.2 (0.0-0.4) % Absolute Granulocytes 10.66 H (1.4-6.9) Basophils # 0.02 (0-0.4) Sodium (137-145) mmol/L Potassium (3.5-5.1) mmol/L Chloride (98-107) mmol/L Carbon Dioxide (22-30) mmol/L Anion Gap (5-15) MEQ/L BUN (9-20) mg/dL Creatinine (0.66-1.25) mg/dL Estimated GFR ML/MIN Glucose (74-106) mg/dL Lactic Acid 3.0 H (0.4-2.0) Calcium (8.4-10.2) mg/dL Total Bilirubin (0.2-1.3) mg/dL AST (17-59) U/L ALT (0-50) U/L Alkaline Phosphatase (38-126) U/L Serum Total Protein (6.3-8.2) g/dL Albumin (3.5-5.0) g/dL Amylase (30-110) U/L Lipase (23-300) U/L Urinalys Dipstick Clnc Urine Color (YELLOW) Urine Appearance (CLEAR) Urine pH (5-6) Ur Specific [place] (1.005-1.025) POC Urine Protein Conf (Negative) Urine Ketones (NEGATIVE) Urine Nitrite (NEGATIVE) Urine Bilirubin (NEGATIVE) Urine Urobilinogen (0-1) mg/dL Urine Leukocytes (NEGATIVE) Urine WBC (Auto) (0-5) /HPF Urine RBC (Auto) (0-2) /HPF U Hyaline Cast (Auto) (0-2) /LPF U Epithel Cells (Auto) (FEW) /HPF Urine Bacteria (Auto) (NEGATIVE) /HPF Urine RBC (0-5) Marlon/ul Urine Mucus (Auto) (NEGATIVE) /HPF Ur Culture Indicated? Urine Glucose (NEGATIVE) mg/dL - Progress Progress: improved Progress Note: 02/16/22 22:25 CAT scan of the abdomen pelvis without shows a picture consistent with either ileus versus gastroenteritis. Counseled pt/family regarding: lab results, diagnosis, need for follow-up, rad results - Departure Departure Disposition: Home Clinical Impression: Dehydration, Gastroenteritis Condition: Stable Critical Care Time: No Referrals: LILY HINTON MD [ACTIVE STAFF] - Follow up/PCP as directed Additional Instructions: Drink plenty of clear liquids. Take your antibiotics as prescribed. Follow-up with your primary care doctor for further evaluation and management Prescriptions: Ondansetron ODT 4 MG [Zofran Odt 4 mg] 4 mg PO Q6H PRN PRN #10 tablet PRN Reason: Vomiting Metronidazole 500 mg [Flagyl 500 MG] 500 mg PO TID #21 tablet
[2022-02-16] MEDS ORDERED: Zofran 4 MG/2 ML VIAL IV ONE (20:40)
[2022-02-16] MEDS ORDERED: Sodium Chloride 0.9% 1000 ML 1,000 ML IV STA ×2 (20:40→22:08)
[2022-02-16] MEDS ORDERED: Sodium Chloride 0.9% 1000 ML 1,000 ML ONE ×2 (20:44→22:18)
[2022-02-16] MEDS ORDERED: Zofran 4 MG/2 ML VIAL ONE (20:44)
[2022-02-16 21:52] LABS: Absolute Neutrophil Ct (ANC) 10.66 (1.4-6.9); Basophil (Absolute #) 0.02 (0-0.4); Eosinophil % 0.8 % (0.00-5.0); Hematocrit 43.4 % (42-50); Hemoglobin 14.5 gm/dl (12.5-18.0); Lymphocyte (Absolute #) 0.59 (1.0-4.6); Lymphocytes % 4.8 % (24.0-44.0); Mean Cell Volume 89.7 fl (78-100); Mean Corpuscular Hgb Concent. 33.4 g/dl (32-36); Monocyte (Absolute #) 0.81 (0.0-1.3); Monocytes % 6.7 % (0.0-12.0); Neutrophil % 87.5 % (36.0-66.0); Platelet Count 169 K/mm3 (150-450); Red Blood Count 4.84 M/mm3 (4.1-5.6); Red Cell Distribution Width 13.2 % (11.5-14.0); White Blood Count 12.2 K/mm3 (4.0-10.5)
[2022-02-16 22:07] LABS: ALBUMIN 4.3 g/dL (3.5-5.0); ALKALINE PHOSPHATASE 39 U/L (38-126); AMYLASE 54 U/L (30-110); ANION GAP 13.6 MEQ/L (5-15); BLOOD UREA NITROGEN 7 mg/dL (9-20); CHLORIDE 102 mmol/L (98-107); Calcium 8.8 mg/dL (8.4-10.2); Carbon Dioxide 27 mmol/L (22-30); Creatinine 1 0.86 mg/dL (0.66-1.25); EST GLOMERULAR FILTRATION RATE > 60.0 ML/MIN; Glucose 114 mg/dL (74-106); LIPASE 37 U/L (23-300); SGOT/AST 25 U/L (17-59); SGPT/ALT 15 U/L (0-50); SODIUM 139 mmol/L (137-145); Total Protein 7.1 g/dL (6.3-8.2)
[2022-02-16] MEDS ORDERED: Flagyl 500 MG PO ONE (22:08)
[2022-02-16 22:09] LABS: Mucus MANY /HPF (NEGATIVE)
[2022-02-16 22:10] LABS: Appearance CLEAR (CLEAR); Bilirubin SMALL (NEGATIVE); Dipstick done @ ? MAIN LAB; Glucose NEGATIVE (NEGATIVE); Ketones TRACE (NEGATIVE); Nitrite NEGATIVE (NEGATIVE); Protein,Urine Dip 30 (Negative); RBC NEGATIVE Ery/ul (0-5); Specific Gravity >=1.030 (1.005-1.025); Urine Cultured Indicated? YES; Urobilinogen 1 mg/dL (0-1)
[2022-02-16] MEDS ORDERED: Flagyl 500 MG ONE (22:18)
[2022-02-16 22:24] LABS: Amphetamine,Urine NEGATIVE (NEGATIVE); Barbiturate,Urine NEGATIVE (NEGATIVE); Benzodiazepine,Urine NEGATIVE (NEGATIVE); Cocaine,Urine NEGATIVE (NEGATIVE); Methadone,Urine NEGATIVE (NEGATIVE); Opiate,Urine NEGATIVE (NEGATIVE); PCP,Urine NEGATIVE (NEGATIVE); THC,Urine POSITIVE (NEGATIVE)
[2022-02-16 23:15] VITALS: O2SAT 100
[2022-02-16 23:22] VITALS: BP 109/83; PULSE 77
--- NOTE | 2022-02-17 09:02 | XRAY ---
Indication: Abdomen pain, nausea, and vomiting. Multiple contiguous axial images obtained through the abdomen and pelvis without contrast. Comparison: None Lung bases are clear. Heart not enlarged. Stomach and small bowel loops are mildly fluid distended with fluid leveling. Several jejunal bowel loops demonstrate mild circumferential wall thickening. Findings favor ileus versus gastroenteritis. Previous appendectomy. No free fluid/air. Remaining liver, gallbladder, pancreas, spleen, adrenal glands, kidneys, ureters, bladder, and aorta are unremarkable for noncontrast exam. Osseous structures intact. No ventral or inguinal hernias. Impression: 1. Mild fluid distended stomach and small bowel loops with fluid leveling and small bowel wall thickening, ileus versus gastroenteritis. 2. Remaining CT abdomen/pelvis without contrast exam is negative.
== END 2022-02-16 23:27 | disposition home or self-care (01) ==
LOC: ED 20:16
DX: K52.9 Noninfective gastroenteritis and colitis, unspecified (principal); E86.0 Dehydration; R11.2 Nausea with vomiting, unspecified; R10.9 Unspecified abdominal pain
CPT/HCPCS: 36000; 36415; 74176; 80053; 80307; 81015; 82150; 83605; 83690; 85025; 87086; 96360; 96361; 96374; 99284; J2405; A9270-GY

== ENCOUNTER 2023-02-04 18:09 | Emergency (ER) | payer OTHER ==
[2023-02-04 19:55] VITALS: O2SAT 98
--- NOTE | 2023-02-04 20:03 | ERPHSYRPT ---
- History of Present Illness Time Seen by Provider: 02/04/23 20:02 Source: patient, family Exam Limitations: no limitations Patient Subjective Stated Complaint: pt states he has been having lower back pain for past 3 days. today pain has been radiating to his hips. pain increases with movement and walking Triage Nursing Assessment: pt alert and oriented, answers questios approp. pt ambulates into room with slow, steady gait noted. respirations nonlabored. skin warm and dry. no tenderness noted to back with palpation. Timing/Duration: day(s) (3), gradual onset Method of Injury: bending, lifting Quality: dull, aching Back Pain Location: lumbar spine Severity of Pain-Max: moderate Severity of Pain-Current: moderate Modifying Factors: Improves With: rest. Worsens With: movement Associated Symptoms: denies symptoms Previous symptoms: same symptoms as today Allergies/Adverse Reactions: No Known Drug Allergies Allergy (Verified 02/04/23 20:00) Hx Tetanus, Diphtheria Vaccination/Date Given: Yes Hx Influenza Vaccination/Date Given: No Hx Pneumococcal Vaccination/Date Given: No Immunizations Up to Date: Yes Travel Risk - International Travel Have you traveled outside of the country in past 3 weeks: No - Coronavirus Screening Are you exhibiting any of the following symptoms?: No Close contact with a COVID-19 positive Pt in past 14-21 Days: No - Vaccine Status Have you recieved a Covid-19 vaccination: No - Review of Systems Constitutional: No Symptoms Eyes: No Symptoms Ears, Nose, & Throat: No Symptoms Respiratory: No Symptoms Cardiac: No Symptoms Abdominal/Gastrointestinal: No Symptoms Genitourinary Symptoms: No Symptoms Musculoskeletal: No Symptoms Skin: No Symptoms Neurological: No Symptoms Psychological: No Symptoms Endocrine: No Symptoms Hematologic/Lymphatic: No Symptoms Immunological/Allergic: No Symptoms All Other Systems: Reviewed and Negative - Past Medical History Pertinent Past Medical History: Yes Neurological History: No Pertinent History ENT History: No Pertinent History Cardiac History: No Pertinent History Respiratory History: No Pertinent History Endocrine Medical History: No Pertinent History Musculoskeletal History: No Pertinent History, Fractures GI Medical History: No Pertinent History Psycho-Social History: Depression Male Reproductive Disorders: No Pertinent History Other Medical History: 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 wrist fx. R 2nd toe fx in 2018 - Past Surgical History Past Surgical History: Yes Neuro Surgical History: No Pertinent History Cardiac: No Pertinent History Respiratory: No Pertinent History Gastrointestinal: Appendectomy Genitourinary: No Pertinent History Musculoskeletal: No Pertinent History Male Surgical History: No Pertinent History Other Surgical History: rt foot 2nd toe - Social History Smoking Status: Current every day smoker How long have you smoked: 16yrs Exposure to second hand smoke: Yes Drug Use: marijuana Patient Lives Alone: Yes Significant Family History: no pertinent family hx - Nursing Vital Signs Nursing Vital Signs: Initial Vital Signs Temperature 98.0 F 02/04/23 19:44 Pulse Rate 75 02/04/23 19:44 Respiratory Rate 16 02/04/23 19:44 Blood Pressure 129/87 02/04/23 19:44 O2 Sat by Pulse Oximetry 98 02/04/23 19:44 Pain Scale Pain Intensity [Left Lower 5 Back] Pain Intensity 3 - Physical Exam General Appearance: mild distress Eye Exam: PERRL/EOMI Ears, Nose, Throat Exam: normal ENT inspection Neck Exam: normal inspection, non-tender Respiratory Exam: normal breath sounds Cardiovascular Exam: regular rate/rhythm Gastrointestinal Exam: soft Rectal Exam: deferred Back Exam: normal inspection, decreased range of motion, muscle spasm, other (lumbar area generally TTP) Extremity Exam: normal inspection, normal range of motion Neurologic Exam: alert, oriented x 3, cooperative, normal mood/affect, nml station & gait, sensation nml Skin Exam: normal color, warm SpO2: 98 - Course Nursing assessment & vital signs reviewed: Yes - Radiology Exams L-Spine X-ray Interpretation: Interpreted by me, Negative Ordered Tests: Active Orders 24 hr Category Date Time Status LUMBAR LIMITED (2 OR 3 VIEWS) Stat Exams 02/04/23 20:09 Taken Medication Summary Discontinued Medications Generic Name Dose Route Start Last Admin Trade Name Lukas PRN Reason Stop Dose Admin Dexamethasone Sodium Phosphate 10 mg 02/04/23 20:09 02/04/23 20:31 Dexamethasone Sod Phosphate 10 Mg/Ml IM 02/04/23 20:10 10 mg STAT ONE Administration Dexamethasone Sodium Phosphate Confirm 02/04/23 20:12 Dexamethasone Sod Phosphate 10 Mg/Ml Administered 02/04/23 20:13 Dose 10 mg .ROUTE .STK-MED ONE Ketorolac Tromethamine 30 mg 02/04/23 20:08 02/04/23 20:31 Ketorolac Tromethamine 30 Mg/Ml Inj IM 02/04/23 20:09 30 mg STAT ONE Administration Ketorolac Tromethamine Confirm 02/04/23 20:12 Ketorolac Tromethamine 30 Mg/Ml Inj Administered 02/04/23 20:13 Dose 30 mg .ROUTE .STK-MED ONE - Progress Progress: unchanged Progress Note: 02/05/23 07:27 Low back strain. Rx steroids, muscle relaxer, take OTC NSAID Counseled pt/family regarding: diagnosis, need for follow-up - Departure Departure Disposition: Home Clinical Impression: Low back strain Qualifiers: Encounter type: initial encounter Qualified Code(s): S39.012A - Strain of muscle, fascia and tendon of lower back, initial encounter Condition: Stable Critical Care Time: No Referrals: ROBIN BURGER [Primary Care Provider] - Follow up/PCP as directed Instructions: Low Back Pain (DC) Additional Instructions: Activity as tolerated. Take ibuprofen and Rx medicine as needed. Recheck if not better. Forms: Work/School Release Form Prescriptions: Methocarbamol [Robaxin] 500 mg PO Q6H PRN PRN #20 tablet PRN Reason: muscle spasm Methylprednisolone 4 mg [Medrol 4 mg] 1 packet PO CLARIFY #1 packet
[2023-02-04] MEDS ORDERED: TORAdol 30 mg Injection IM ONE (20:08)
[2023-02-04] MEDS ORDERED: DECADRON 10MG INJ. IM ONE (20:09)
[2023-02-04] MEDS ORDERED: TORAdol 30 mg Injection ONE (20:12)
[2023-02-04] MEDS ORDERED: DECADRON 10MG INJ. ONE (20:12)
[2023-02-04 21:04] VITALS: BP 136/76; PULSE 72
--- NOTE | 2023-02-05 08:44 | XRAY ---
Indication: Low back pain. Comparison: June 10, 2019 3 view lumbar spine again demonstrates minimal levoscoliosis and L6-S1 disc space narrowing. New mild air distended small bowel loops, possible ileus versus enteritis in the right clinical setting. No other bony, articular, or soft tissue abnormalities.
== END 2023-02-04 21:09 | disposition home or self-care (01) ==
LOC: ED 18:09
DX: S39.012A Strain of muscle, fascia and tendon of lower back, initial encounter (principal); Z79.52 Long term (current) use of systemic steroids; Z28.310 Unvaccinated for COVID-19; Z72.0 Tobacco use
CPT/HCPCS: 72100; 96372; 99283; J1100; J1885

== ENCOUNTER 2023-03-19 22:38 | Emergency (ER) | payer OTHER ==
[2023-03-19] MEDS ORDERED: Protonix 40MG Tablet PO ONE (23:00)
[2023-03-19] MEDS ORDERED: GI COCKTAIL 45 ML (Maalox/Lidocaine) PO ONE (23:01)
[2023-03-19] MEDS ORDERED: MAALOX ES 30 ML UNIT DOSE ONE (23:10)
[2023-03-19] MEDS ORDERED: XYLOCAINE VISCOUS 2% 15 ML CUP ONE (23:10)
[2023-03-19] MEDS ORDERED: Protonix 40MG Tablet ONE (23:10)
--- NOTE | 2023-03-19 23:33 | ERPHSYRPT ---
- History of Present Illness Time Seen by Provider: 03/19/23 23:03 Source: patient Exam Limitations: no limitations Patient Subjective Stated Complaint: pt states that he "recently has felt like something food is stuck in my throat causing pressure to neck/ throat/ chest/ upper belly". Triage Nursing Assessment: pt ambulated into room 8 independently with a slow steady gait, is alert and oriented times three, able to move all extremities, speaks in complete sentences, and with resp even and unlabored. frequent throat clearing noted, nothing coming up. throat is clear, pink, moist, and anatomically normal. lung sounds clear bilaterally. he stated that a few weeks ago he cleaned a bunch of sewage out from under a house and when symptoms started he saw Dr Priya Oreilly who prescribed antibiotics which he has not been taking per prescription but that he is taking them intermittently. on Sun night he went to [facility] for same symptoms was worked up and nothing abnormal was noted (per pt report) and he was prescribed an inhaler. tonight he was eating pizza and felt like it stopped in his esophagus in chest area then went on down. he reports a lot of belching which makes his discomfort better. per his report nothing makes the discomfort better. Physician History: 27 years old male presented in the ER with multiple complaints. Patient reports having sore throat going on for the last few weeks after he was cleaning sewage, seen outpatient with a prescription of antibiotics which did not help much, patient was evaluated to few days ago at [facility] ER with negative work-up and was prescribed inhaler. Patient reports earlier he was eating pizza and it felt it got stuck in the throat and slowly went down and since then having some irritation in the throat and lower chest burning sensation. He did drink afterwards and was able to tolerate. Patient reports since he has been on antibiotics he has been burping more frequently. Reports daily marijuana use. Patient is not in any distress but very anxious. Timing/Duration: gradual onset, days, weeks Severity: moderate ENT Location: throat Prearrival Treatment: prescription meds Modifying Factors: Improves With: other Associated Symptoms: poor solids intake, swollen glands, sore throat, difficulty swallowing Allergies/Adverse Reactions: No Known Drug Allergies Allergy (Verified 02/04/23 20:00) Home Medications: Albuterol Sulfate [Proair Respiclick] 2 puffs IH QID PRN 03/19/23 [History] Amox Tr/Potass Clav. 875 mg [Augmentin 875-125 Tablet] 875 mg PO BID 03/19/23 [History] Azithromycin [Azithromycin 250 mg Pack] 250 mg PO UD 03/19/23 [History] Levocetirizine Dihydrochloride [Xyzal] 5 mg PO EVENING MEAL 03/19/23 [History] Hx Tetanus, Diphtheria Vaccination/Date Given: No Hx Influenza Vaccination/Date Given: No Hx Pneumococcal Vaccination/Date Given: No Immunizations Up to Date: No Travel Risk - International Travel Have you traveled outside of the country in past 3 weeks: No - Coronavirus Screening Are you exhibiting any of the following symptoms?: No Close contact with a COVID-19 positive Pt in past 14-21 Days: No - Vaccine Status Have you recieved a Covid-19 vaccination: No - Review of Systems Constitutional: No Symptoms Eyes: No Symptoms Ears, Nose, & Throat: Throat Pain, Throat Swelling, Painful Swallowing Respiratory: No Symptoms Cardiac: No Symptoms Abdominal/Gastrointestinal: No Symptoms Musculoskeletal: No Symptoms Skin: No Symptoms Neurological: No Symptoms Endocrine: No Symptoms Hematologic/Lymphatic: No Symptoms - Past Medical History Pertinent Past Medical History: Yes Neurological History: No Pertinent History ENT History: No Pertinent History Cardiac History: No Pertinent History Respiratory History: No Pertinent History Endocrine Medical History: No Pertinent History Musculoskeletal History: No Pertinent History, Fractures GI Medical History: No Pertinent History History: No Pertinent History Psycho-Social History: Depression Male Reproductive Disorders: No Pertinent History Other Medical History: 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 wrist fx. R 2nd toe fx in 2018 - Past Surgical History Past Surgical History: Yes Neuro Surgical History: No Pertinent History Cardiac: No Pertinent History Respiratory: No Pertinent History Gastrointestinal: Appendectomy Genitourinary: No Pertinent History Musculoskeletal: Orthopedic Surgery Male Surgical History: No Pertinent History Other Surgical History: rt foot 2nd toe - Social History Smoking Status: Current every day smoker How long have you smoked: 16yrs Exposure to second hand smoke: Yes Drug Use: marijuana Patient Lives Alone: No Significant Family History: no pertinent family hx - Nursing Vital Signs Nursing Vital Signs: Initial Vital Signs Temperature 98.1 F 03/19/23 22:53 Pulse Rate 89 03/19/23 22:53 Respiratory Rate 16 03/19/23 22:53 Blood Pressure 143/86 03/19/23 22:53 O2 Sat by Pulse Oximetry 100 03/19/23 22:53 Pain Scale Pain Intensity 5 - Physical Exam General Appearance: no apparent distress, alert, anxiety Eye Exam: bilateral eye: normal inspection, PERRL, EOMI Ear Exam: bilateral ear: auricle normal, canal normal, TM normal Nasal Exam: normal inspection Throat Exam: moist mucus membranes, No pharynx normal (Mild pharyngeal erythema), No tonsillar exudate, No uvula swelling Neck Exam: normal inspection, non-tender, supple, full range of motion, No lymphadenopathy (R), No lymphadenopathy (L) Cardiovascular/Respiratory Exam: normal breath sounds, regular rate/rhythm Abdominal Exam: non-tender, soft, no organomegaly Neurologic Exam: alert, oriented x 3, 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 nml as tested Skin Exam: normal color SpO2 Interpretation: normal SpO2: 100 O2 Delivery: Room Air Ordered Tests: Medication Summary Discontinued Medications Generic Name Dose Route Start Last Admin Trade Name Freq PRN Reason Stop Dose Admin Al Hydrox/Mg Hydrox/Simethicone Confirm 03/19/23 23:10 Mag Hydrox/Al Hydrox/Simeth 30 Ml Udcup Administered 03/19/23 23:11 Dose 30 ml .ROUTE .STK-MED ONE Lidocaine HCl Confirm 03/19/23 23:10 Lidocaine Hcl 2% Viscous 15 Ml Udcup Administered 03/19/23 23:11 Dose 15 ml .ROUTE .STK-MED ONE Magnesium Hydroxide 45 ml 03/19/23 23:01 03/19/23 23:11 Mag Hydrx/Alum Hyd/Simeth/Lido 45 Ml Bottle PO 03/19/23 23:02 45 ml STAT ONE Administration Pantoprazole Sodium 40 mg 03/19/23 23:00 03/19/23 23:11 Protonix (Pantoprazole) 40 Mg Tablet PO 03/19/23 23:01 40 mg STAT ONE Administration Pantoprazole Sodium Confirm 03/19/23 23:10 Protonix (Pantoprazole) 40 Mg Tablet Administered 03/19/23 23:11 Dose 40 mg .ROUTE .STK-MED ONE - Progress Progress Note: 03/19/23 23:41 27 years old male presented in the ER with multiple complaints. Patient reports having sore throat going on for the last few weeks after he was cleaning sewage, seen outpatient with a prescription of antibiotics which did not help much, patient was evaluated to [facility] days ago [facility] with negative work-up and was prescribed inhaler. Patient reports earlier he was eating pizza and it felt it got stuck in the throat and slowly went down and since then having some irritation in the throat and lower chest burning sensation. He did drink afterwards and was able to tolerate. Patient reports since he has been on antibiotics he has been burping more frequently. Reports daily marijuana use. Patient is not in any distress but very anxious. Not in any distress. EKG showed normal sinus rhythm with no acute ischemic changes. Patient's symptoms are more of esophagitis, given Protonix and GI cocktail. I believe patient has GERD with esophagitis and needed prescription of Protonix and Carafate. Do not think this is cardiac and patient is already on antibiotics, and no need for swabs. I would not give him any steroids as it were probably make his symptoms go worse. Recommended outpatient follow-up. Discussed signs symptoms of worsen ing needing return to ER which she seems understanding. Counseled pt/family regarding: diagnosis, need for follow-up, smoking cessation Medical Desision Making - Risk of complications Low Risk: Low risk of morbidity from additional dx testing or treatment The pt has a mod risk of morbidity or mortality based on: Need for prescription drug management - Departure Departure Disposition: Home Clinical Impression: GERD with esophagitis Condition: Stable Critical Care Time: No Referrals: ROBIN BURGER [Primary Care Provider] - Follow up with PCP 1 day Instructions: Acid Reflux and GERD in Adults (DC) Additional Instructions: Do not take ibuprofen, do not smoke. Follow-up with primary care for reevaluation and may need referral for GI if symptoms does not improve for further evaluation with endoscopy. Faith chew your food before swallowing. Return to ER for worsening of symptoms like burning in the throat, food stuck in. Prescriptions: Sucralfate 1 gm [Carafate 1 GM] 1 g PO ACHS #20 tablet PANTOPRAZOLE 40 mg Tablet [Protonix 40MG Tablet] 40 mg PO QAM #30 tab
[2023-03-19 23:41] VITALS: BP 126/76; PULSE 82; O2SAT 99
== END 2023-03-19 23:44 | disposition home or self-care (01) ==
LOC: ED 22:38
DX: K21.00 Gastro-esophageal reflux disease with esophagitis, without bleeding (principal); R07.9 Chest pain, unspecified; Z79.899 Other long term (current) drug therapy; Z28.310 Unvaccinated for COVID-19; Z72.0 Tobacco use
CPT/HCPCS: 93005; 99283; A9270-GY

== ENCOUNTER 2023-05-25 11:51 | Emergency (ER) | payer OTHER ==
[2023-05-25] MEDS ORDERED: XYLOCAINE 1% HCL 20 ML MDV IJ ONE (11:55)
[2023-05-25] MEDS ORDERED: XYLOCAINE 1% HCL 20 ML MDV ONE (11:56)
[2023-05-25 12:11] VITALS: BP 110/47; PULSE 65; TEMP 96.1; O2SAT 98
[2023-05-25] MEDS ORDERED: BACIGUENT PACKET TP ONE (12:43)
[2023-05-25] MEDS ORDERED: BACIGUENT PACKET ONE (12:44)
[2023-05-25] MEDS ORDERED: KEFZOL 1 GM IM ONE (12:47)
[2023-05-25] MEDS ORDERED: KEFZOL 1 GM ONE (12:49)
[2023-05-25] MEDS ORDERED: Sterile H2O 10 ml IJ ONE (12:50)
--- NOTE | 2023-05-25 13:35 | ERPHSYRPT ---
- History of Present Illness Time Seen by Provider: 05/25/23 12:01 Source: patient Exam Limitations: no limitations Patient Subjective Stated Complaint: pt had a semi back up which knocked him off and then a refrigerator fell off a skid that was already on the ground and l anded on his right lower extremity causing a laceration, pt also injured his 2nd finger on his right hand Triage Nursing Assessment: Pt brought to the ER by a coworker, diaz garcia, reports pain at a 4/10 in his finger and states that he can't feel the pain in his right leg, 5cm x 1.5cm laceration to the distal medial right calf, pulses normal, skin pale/w/d, pain to right 2nd finger, no noticable swelling or bruising Physician History: 27 years old male up-to-date with tetanus presented in the ER with chief complaint of laceration right lower leg while he was working and a heavy refrigerator fell on his leg. Patient has a medical laceration with bleeding initially but stopped prior to arrival in the ER. Patient is able to ambulate on the right lower extremity without any limitation. Complaining of mild to moderate dull aching pain with palpation and movements and better with resting. Does report having injury to right index finger and left side of face and questionable hitting his head against the semi he was working on. No loss of consciousness. Denies any headache but does have some pain in the left maxillary area with movements of jaw. Denies any numbness or tingling in the toes of her right foot. No ankle pain or difficulty movements. Allergies/Adverse Reactions: No Known Drug Allergies Allergy (Verified 05/25/23 12:08) Hx Tetanus, Diphtheria Vaccination/Date Given: No Hx Influenza Vaccination/Date Given: No Hx Pneumococcal Vaccination/Date Given: No Travel Risk - International Travel Have you traveled outside of the country in past 3 weeks: No - Coronavirus Screening Are you exhibiting any of the following symptoms?: No Close contact with a COVID-19 positive Pt in past 14-21 Days: No - Vaccine Status Have you recieved a Covid-19 vaccination: No - Review of Systems Constitutional: No Symptoms Eyes: No Symptoms Ears, Nose, & Throat: Other (Left facial pain), No Ear Pain, No Nose Congestion, No Mouth Swelling Respiratory: No Symptoms Cardiac: No Symptoms Abdominal/Gastrointestinal: No Symptoms Genitourinary Symptoms: No Symptoms Musculoskeletal: Injury Skin: Skin Lesions Neurological: No Symptoms Psychological: No Symptoms Endocrine: No Symptoms Hematologic/Lymphatic: No Symptoms Immunological/Allergic: No Symptoms - Past Medical History Pertinent Past Medical History: Yes Neurological History: No Pertinent History ENT History: No Pertinent History Cardiac History: No Pertinent History Respiratory History: No Pertinent History Endocrine Medical History: No Pertinent History Musculoskeletal History: No Pertinent History, Fractures GI Medical History: No Pertinent History History: No Pertinent History Psycho-Social History: Depression Male Reproductive Disorders: No Pertinent History Other Medical History: 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 wrist fx. R 2nd toe fx in 2018 - Past Surgical History Past Surgical History: Yes Neuro Surgical History: No Pertinent History Cardiac: No Pertinent History Respiratory: No Pertinent History Gastrointestinal: Appendectomy Genitourinary: No Pertinent History Musculoskeletal: Orthopedic Surgery Male Surgical History: No Pertinent History Other Surgical History: rt foot 2nd toe - Social History Smoking Status: Current every day smoker How long have you smoked: 16yrs Exposure to second hand smoke: Yes Drug Use: marijuana Patient Lives Alone: No Significant Family History: no pertinent family hx - Nursing Vital Signs Nursing Vital Signs: Initial Vital Signs Temperature 96.1 F 05/25/23 11:53 Pulse Rate 65 05/25/23 11:53 Blood Pressure 110/47 05/25/23 11:53 O2 Sat by Pulse Oximetry 98 05/25/23 11:53 Pain Scale Pain Intensity 4 - Physical Exam General Appearance: no apparent distress, alert, anxiety Eyes, Ears, Nose, Throat Exam: TMs normal, pharynx normal, moist mucous membranes, other (Mild tenderness left zygomatic arch area. No crepitus. Minimal swelling.) Neck Exam: normal inspection, non-tender, supple, full range of motion Cardiovascular/Respiratory Exam: chest non-tender, normal breath sounds, regular rate/rhythm Gastrointestinal/Abdominal Exam: non-tender, soft Back Exam: normal inspection, normal range of motion, No vertebral tenderness Hips Exam: bilateral: non-tender, normal inspection, normal range of motion, no evidence of injury Legs Exam: right leg: bone tenderness (Minimal tenderness of the damon around laceration area), pain, soft tissue tenderness, other (4.5 cm laceration along the medial edge of the right tibia. Exposed tendon but no obvious laceration. Intact distal neurovascular. Small abrasions in the laceration almost 2 cm alongside the bigger laceration. No active spurting, minimal oozing.), left leg: non-tender, normal inspection, normal range of motion, no evidence of injury Knees Exam: bilateral knee: non-tender, normal inspection, normal range of motion, no evidence of injury Ankle Exam: bilateral ankle: non-tender, normal inspection, normal range of motion, no evidence of injury Foot Exam: bilateral foot: non-tender, normal inspection, normal range of motion, no evidence of injury Neuro/Tendon Exam: normal sensation, normal motor functions, normal tendon functions Mental Status Exam: alert, oriented x 3, cooperative Skin Exam: normal color SpO2 Interpretation: normal SpO2: 98 O2 Delivery: Room Air Procedures - Laceration/Wound Repair Right Other Time of Procedure: 13:00 Wound Location: Right Wound Length (cm): 4.5 Wound's Depth, Shape: into muscle, linear Wound Explored: clean Irrigated: Yes Hibiclens Prep: Yes Anesthesia: 1% Lidocaine Volume Anesthetic (ccs): 10 Wound Repaired With: sutures Suture Size/Type: 3-0, prolene, nylon Number of Sutures: 8 Layer Closure?: No Sterile Dressing Applied?: Yes Splint Applied?: No Ordered Tests: Active Orders 24 hr Category Date Time Status Juan [facility] 05/25/23 13:01 Active Wound Care STAT Care 05/25/23 11:58 Active FACIAL BONES WO CONTRAST [CT] Stat Exams 05/25/23 12:50 Taken FINGER(S) Stat Exams 05/25/23 11:57 Completed HEAD WITHOUT CONTRAST [CT] Stat Exams 05/25/23 12:50 Completed LOWER LEG Stat Exams 05/25/23 11:57 Completed Medication Summary Discontinued Medications Generic Name Dose Route Start Last Admin Trade Name Lukas PRN Reason Stop Dose Admin Hydrocodone Bitart/Acetaminophen 2 tab 05/25/23 14:56 05/25/23 14:58 Hydrocodone/Apap 5/325 1 Tab Tablet PO 05/25/23 14:57 2 tab STAT ONE Administration Hydrocodone Bitart/Acetaminophen Confirm 05/25/23 14:57 Hydrocodone/Apap 5/325 1 Tab Tablet Administered 05/25/23 14:58 Dose 2 tab .ROUTE .STK-MED ONE Bacitracin Zinc 2 each 05/25/23 12:43 05/25/23 12:46 Bacitracin Packet 1 Each Pckt TP 05/25/23 12:44 2 each STAT ONE Administration Bacitracin Zinc Confirm 05/25/23 12:44 Bacitracin Packet 1 Each Pckt Administered 05/25/23 12:45 Dose 2 each .ROUTE .STK-MED ONE Cefazolin Sodium 1.5 g 05/25/23 12:47 05/25/23 12:54 Cefazolin Sodium 1 Gm Vial IM 05/25/23 12:48 1.5 g STAT ONE Administration Cefazolin Sodium Confirm 05/25/23 12:49 Cefazolin Sodium 1 Gm Vial Administered 05/25/23 12:50 Dose 2 g .ROUTE .STK-MED ONE Lidocaine HCl 10 ml 05/25/23 11:55 05/25/23 11:56 Lidocaine Hcl 1% 20 Ml Mdv 20 Ml Ml IJ 05/25/23 11:56 10 ml STAT ONE Administration Lidocaine HCl Confirm 05/25/23 11:56 Lidocaine Hcl 1% 20 Ml Mdv 20 Ml Ml Administered 05/25/23 11:57 Dose 10 ml .ROUTE .STK-MED ONE Sterile Water Confirm 05/25/23 12:50 Water For Injection,Sterile 10 Ml Vial Administered 05/25/23 12:51 Dose 10 ml IJ .STK-MED ONE - Progress Progress: improved Progress Note: 05/25/23 13:37 27 years old male up-to-date with tetanus presented in the ER with chief complaint of laceration right lower leg while he was working and a heavy refrigerator fell on his leg. Patient has a medical laceration with bleeding initially but stopped prior to arrival in the ER. Patient is able to ambulate on the right lower extremity without any limitation. Complaining of mild to moderate dull aching pain with palpation and movements and better with resting. Does report having injury to right index finger and left side of face and questionable hitting his head against the semi he was working on. No loss of consciousness. Denies any headache but does have some pain in the left maxillary area with movements of jaw. Denies any numbness or tingling in the toes of her right foot. No ankle pain or difficulty movements. Laceration is thoroughly cleaned and repaired. Patient has intact distal neurovascular. X-rays of right leg negative for acute fracture dislocation. X- rays of hand are negative for fracture as well. I believe patient has contusion. CT head and facial bone is pending. No neck tenderness. Intact range of motion of neck. Nonfocal neuro exam. Given a dose of cefazolin here and will continue with antibiotics to go home as it is close to the bone. 05/25/23 13:38 CT head is negative. Recommended taking Tylenol ibuprofen for pain as needed. Avoiding exertion, we will give prophylactic antibiotics. Outpatient follow-up. Discussed signs symptoms of worsening needing return to ER which she seems understanding. 05/25/23 15:47 CT facial bone is negative for fracture or parotid I believe has contusion. Recommended symptomatic care. Counseled pt/family regarding: diagnosis, need for follow-up, rad results Medical Desision Making - Diagnostic Testing Radiological Interpretation: Interpreted by me, Reviewed by me, Teleradiologist Report - Risk of complications The pt has a mod risk of morbidity or mortality based on: Need for prescription drug management, Need for minor surgical intervention in patient with know risk factors - Departure Departure Disposition: Home Clinical Impression: Leg laceration, Facial contusion, Contusion of hand including fingers Condition: Stable Critical Care Time: No Referrals: ROBIN BURGER [Primary Care Provider] - Follow Up with PCP/3 days Instructions: Contusion (DC), Laceration Repair With Stitches (DC) Additional Instructions: Take Tylenol/ibuprofen as needed for pain. Follow-up with primary care for reevaluation. Avoid exertional activities to avoid wound dehiscence. Return to ER for increasing pain swelling redness discharge from leg wound. Also return to ER for intractable headache, numbness tingling focal weakness etc. Prescriptions: Ibuprofen 600 mg PO Q6HPRN PRN 10 Days #20 tablet PRN Reason: Pain Cephalexin Mh 500 mg [Keflex 500 mg] 500 mg PO TID #21 cap
--- NOTE | 2023-05-25 13:36 | XRAY ---
CLINICAL HISTORY:pain/injury COMPARISON:None. TECHNIQUE:Axial non-contrast CT scan of the brain was performed from the skull base to the high parietal region. ;CTDI: 53.92, DLP: 1167.67. FINDINGS: The visualized brain parenchyma shows a normal appearance. Alfaro-white matter differentiation is maintained. No midline shifts or deformity. No intracerebral or extra axial hematoma. Normal size and configuration of the cerebral ventricles. Normal CT appearance of the posterior fossa structures namely the cerebellar hemispheres, brainstem, and cerebellar peduncles. The IACs are unremarkable. The cerebello-pontine angles are clear. The pituitary gland, the pineal gland, and the optic chiasm is unremarkable. The osseous structures in the skull base are unremarkable. No definite calvarium fractures. Mucosal thickening is seen lining the narayanan of the left maxillary sinus. IMPRESSION: No intracerebral or extra axial hematoma. No definite calvarium fractures. Electronically Signed by: Suad Carvalho MD. (05/25/2023 12:35:23 [employer] [facility])
[2023-05-25] MEDS ORDERED: NORCO 5/325 MG PO ONE (14:56)
[2023-05-25] MEDS ORDERED: NORCO 5/325 MG ONE (14:57)
--- NOTE | 2023-05-25 15:28 | XRAY ---
CLINICAL HISTORY:pain/injury COMPARISON:None. TECHNIQUE:X-ray of the right index and middle finger in PA, oblique and lateral views. FINDINGS: Normal bone mineralization. Radiological examination of the right index and middle finger demonstrates no acute fracture or dislocation. The cortical margins of the osseous structures are within normal limits. Normal metacarpophalangeal and interphalangeal joints. Soft tissues appear unremarkable. IMPRESSION: Negative study for acute fracture. DISCLAIMER:A subtle bone abnormality or fracture may not be readily apparent on x-rays, thus clinical correlation and further imaging including follow-up CT, MRI, or follow-up x-rays are advised as needed. Electronically Signed by: Suad Carvalho MD. (05/25/2023 14:26:35 LAUNDERETTE ATTENDANT)
--- NOTE | 2023-05-25 15:30 | XRAY ---
CLINICAL HISTORY:pain/injury COMPARISON:None. TECHNIQUE:X-ray of right tibia and fibula in AP and lateral views. FINDINGS: Normal bone mineralization. Radiological examination of the right tibia and fibula demonstrates no lytic or sclerotic bone lesion. The cortical margins of the osseous structures are within normal limits. No acute fracture is identified. Soft tissue injury/swelling is noted along the posterior medial aspect of the lower leg. IMPRESSION: 1. No acute fracture. 2. Soft tissue injury/swelling is noted along the posterior medial aspect of the lower leg - suggesting clinical correlation. DISCLAIMER:A subtle bone abnormality or fracture may not be readily apparent on x-rays, thus clinical correlation and further imaging including follow up CT, MRI, or follow up x-rays are advised as needed. Electronically Signed by: Suad Carvalho MD. 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
--- NOTE | 2023-05-25 15:50 | XRAY ---
CLINICAL HISTORY:pain/injury COMPARISON:None. TECHNIQUE:Contiguous thin axial CT images of the facial bones were acquired without administration of contrast. Coronal and sagittal reconstructions were obtained. FINDINGS: Small size of the mandible with 1 cm posterior displacement in relation to the upper jaw. There is a focal sclerotic area on the body of the right mandible, measuring about 0.9 x 0.6 x 0.9 cm. Although it may probably correspond to a dense bone island, follow-up is recommended to exclude other less likely possibilities such as cementomas. Intact bony outline of all scanned facial bones and paranasal sinuses. Normal configuration of the mandible with no detected fracture lines. Intact both temporomandibular joints. Normal scanned muscles. Normal skin and subcutaneous tissues. Circumferential polypoidal mucosal thickening of the maxillary sinus. IMPRESSION: 1. Small size of the mandible. 2. Sclerotic area on the body of the right mandible. A dense bone island is the most probable diagnosis, although follow-up is recommended to exclude other less likely possibilities. 3. Intact scanned facial bones. 4. Left side maxillary sinusitis. Electronically Signed by: Suad Carvalho MD. (05/25/2023 14:50:27 THERMOPLASTIC TECHNICIAN)
== END 2023-05-25 16:18 | disposition home or self-care (01) ==
LOC: ED 11:51
DX: S81.811A Laceration without foreign body, right lower leg, initial encounter (principal); S00.83XA Contusion of other part of head, initial encounter; S60.221A Contusion of right hand, initial encounter; W20.8XXA Other cause of strike by thrown, projected or falling object, initial encounter; Y99.0 Civilian activity done for income or pay; Z28.310 Unvaccinated for COVID-19; Z72.0 Tobacco use
CPT/HCPCS: 12002; 70450; 70486; 73140; 73590; 96372; 99284; J0690; A9270-GY

== ENCOUNTER 2023-06-08 16:27 | Emergency (ER) | payer OTHER ==
--- NOTE | 2023-06-08 16:32 | ERPHSYRPT ---
- History of Present Illness Time Seen by Provider: 06/08/23 16:32 Source: patient, family Exam Limitations: no limitations Physician History: This is a 28-year-old white male who was seen at his primary care office yesterday to have sutures removed that were placed here in this emergency department on 05/25/2023. According to the patient, there were no instructions as to when the sutures should be removed. However, in review of the discharge instructions the patient was told to contact the primary care physician in 3 days which she did not do. Patient was given a prescription for Keflex which he completed the therapy for. Patient was given a prescription for Levaquin yesterday after the christian were removed and there was some redness around the wound and Steri-Strips were applied. However, the Levaquin was not picked up until this evening and he is yet to take his first dose of Levaquin. He is here for wound check of his right lower extremity. Timing/Duration: yesterday Severity: mild Associated Symptoms: denies symptoms Allergies/Adverse Reactions: No Known Drug Allergies Allergy (Verified 06/08/23 18:01) Home Medications: Levofloxacin [Levofloxacin 500 MG Tablet] 500 mg PO DAILY 06/08/23 [History] Hx Tetanus, Diphtheria Vaccination/Date Given: No Hx Influenza Vaccination/Date Given: No Hx Pneumococcal Vaccination/Date Given: No Travel Risk - International Travel Have you traveled outside of the country in past 3 weeks: No - Coronavirus Screening Are you exhibiting any of the following symptoms?: No Close contact with a COVID-19 positive Pt in past 14-21 Days: No - Vaccine Status Have you recieved a Covid-19 vaccination: No - Review of Systems Constitutional: No Symptoms Eyes: No Symptoms Ears, Nose, & Throat: No Symptoms Respiratory: No Symptoms Cardiac: No Symptoms Abdominal/Gastrointestinal: No Symptoms Genitourinary Symptoms: No Symptoms Musculoskeletal: No Symptoms Skin: Other (Concerned about redness around the suture removal site) Neurological: No Symptoms Psychological: No Symptoms Endocrine: No Symptoms Hematologic/Lymphatic: No Symptoms Immunological/Allergic: No Symptoms All Other Systems: Reviewed and Negative - Past Medical History Pertinent Past Medical History: Yes Neurological History: No Pertinent History ENT History: No Pertinent History Cardiac History: No Pertinent History Respiratory History: No Pertinent History Endocrine Medical History: No Pertinent History Musculoskeletal History: No Pertinent History, Fractures GI Medical History: No Pertinent History History: No Pertinent History Psycho-Social History: Depression Male Reproductive Disorders: No Pertinent History Other Medical History: 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 wrist fx. R 2nd toe fx in 2018 - Past Surgical History Past Surgical History: Yes Neuro Surgical History: No Pertinent History Cardiac: No Pertinent History Respiratory: No Pertinent History Gastrointestinal: Appendectomy Genitourinary: No Pertinent History Musculoskeletal: Orthopedic Surgery Male Surgical History: No Pertinent History Other Surgical History: rt foot 2nd toe - Social History Smoking Status: Current every day smoker How long have you smoked: 16yrs Exposure to second hand smoke: Yes Drug Use: marijuana Patient Lives Alone: No Significant Family History: no pertinent family hx - Nursing Vital Signs Nursing Vital Signs: Initial Vital Signs Temperature 98.1 F 06/08/23 18:02 Pulse Rate 90 06/08/23 18:02 Respiratory Rate 18 06/08/23 18:02 Blood Pressure 141/78 06/08/23 18:02 O2 Sat by Pulse Oximetry 99 06/08/23 18:02 Pain Scale Pain Intensity 0 - Physical Exam General Appearance: no apparent distress, alert, anxiety, thin Eye Exam: PERRL/EOMI, eyes nml inspection Ears, Nose, Throat Exam: normal ENT inspection, moist mucous membranes Neck Exam: normal inspection, non-tender, supple, full range of motion Respiratory Exam: airway intact, No chest tenderness, No respiratory distress Gastrointestinal/Abdomen Exam: No tenderness Rectal Exam: not done Back Exam: normal inspection, normal range of motion, No CVA tenderness, No vertebral tenderness Extremity Exam: normal range of motion, pelvis stable Neurologic Exam: alert, oriented x 3, cooperative, hopper attendant II-XII nml as tested, normal mood/affect, nml cerebellar function, nml station & gait Skin Exam: other (The lacerations repair site right lower extremity shows sutures that were removed and there are quarter inch Steri-Strips in place x3. There is a broad, flat eschar present with some mild redness around the site. There was no expressible pus. However there was some serosanguineous fluid expressed) Lymphatic Exam: No adenopathy SpO2 Interpretation: normal O2 Delivery: Room Air - Course Nursing assessment & vital signs reviewed: Yes - Progress Progress: unchanged Progress Note: 06/08/23 18:41 This patient's medical issue is 1 of low complexity not requiring laboratory radiographic studies. The wound was evaluated.. No intervention is necessary at this time. Patient is to continue the antibiotic that was written for him to start yesterday. Counseled pt/family regarding: diagnosis, need for follow-up Medical Desision Making - Diagnostic Testing Diagnostic test were ordered, analyzed, and reviewed by me: No - Risk of complications Minimal Risk: Minimal risk of morbidity - Departure Departure Disposition: Home Clinical Impression: Eschar of wound bed Condition: Stable Critical Care Time: No Referrals: ROBIN BURGER [Primary Care Provider] - Follow up/PCP as directed Additional Instructions: Keep the site clean daily with soap and water. Cover with a nonstick bandage. Leave the Steri-Strips in place until they fall off on their own. Do not use lotions ointments or creams to the site. May rinse the site once a day with hydroperoxide. Start the Levaquin antibiotic as prescribed. Once the Steri- Strips fall off, you may scrub the eschar site once a day and cover the site with nonstick bandage. Follow-up with your primary care physician or the emergency department if you have concerns about the wound site.
[2023-06-08 18:06] VITALS: BP 141/78; PULSE 90; RESP 18; TEMP 98.1; O2SAT 99
== END 2023-06-08 19:00 | disposition home or self-care (01) ==
LOC: ED 16:27
DX: Z48.00 Encounter for change or removal of nonsurgical wound dressing (principal); S81.811D Laceration without foreign body, right lower leg, subsequent encounter; Z28.310 Unvaccinated for COVID-19; Z72.0 Tobacco use
CPT/HCPCS: 99281

== ENCOUNTER 2023-06-09 11:53 | Emergency (ER) | payer OTHER ==
[2023-06-09] MEDS ORDERED: Adacel Vial IM ONE ×2 (12:04→12:12)
[2023-06-09 12:13] VITALS: BP 134/64; PULSE 84; RESP 16; TEMP 98; O2SAT 99
--- NOTE | 2023-06-09 12:20 | ERPHSYRPT ---
- History of Present Illness Source: patient, other (Mother) Exam Limitations: no limitations Patient Subjective Stated Complaint: pt reports that he is doing some construction work at home and accidentally walked into an exposed nail, scratching him on the forehead. Triage Nursing Assessment: pt is aox3, pupils perrl, afebrile, resps easy and non labored, radial pulses strong and equal, radial pulses strong and equal. pt skin pink warm dry. pt with superficial scratch to the forehead, no bleeding at this time. Physician History: 28 yo WM w 1cm laceration on his glabella after walking into a nail at home. Pt denies LOC/N/V/focal weakness/cervical pain/other injuries. He has a mild headache. Occurred: just prior to arrival Severity: mild Head Injury Location: frontal Method of Injury: direct blow Loss of Consciousness: no loss of consciousness Associated Symptoms: denies symptoms Allergies/Adverse Reactions: No Known Drug Allergies Allergy (Verified 06/08/23 18:01) Home Medications: Levofloxacin [Levofloxacin 500 MG Tablet] 500 mg PO DAILY 06/08/23 [History] Hx Tetanus, Diphtheria Vaccination/Date Given: No Hx Influenza Vaccination/Date Given: No Hx Pneumococcal Vaccination/Date Given: No Immunizations Up to Date: No Travel Risk - International Travel Have you traveled outside of the country in past 3 weeks: No - Coronavirus Screening Are you exhibiting any of the following symptoms?: No Close contact with a COVID-19 positive Pt in past 14-21 Days: No - Vaccine Status Have you recieved a Covid-19 vaccination: No - Review of Systems Constitutional: No Symptoms Eyes: No Symptoms Ears, Nose, & Throat: No Symptoms Respiratory: No Symptoms Cardiac: No Symptoms Abdominal/Gastrointestinal: No Symptoms Genitourinary Symptoms: No Symptoms Musculoskeletal: No Symptoms Skin: No Symptoms Neurological: No Symptoms, Headache Psychological: No Symptoms Endocrine: No Symptoms Hematologic/Lymphatic: No Symptoms Immunological/Allergic: No Symptoms - Past Medical History Pertinent Past Medical History: Yes Neurological History: No Pertinent History ENT History: No Pertinent History Cardiac History: No Pertinent History Respiratory History: No Pertinent History Endocrine Medical History: No Pertinent History Musculoskeletal History: No Pertinent History, Fractures GI Medical History: No Pertinent History History: No Pertinent History Psycho-Social History: Depression Male Reproductive Disorders: No Pertinent History Other Medical History: 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 wrist fx. R 2nd toe fx in 2018 - Past Surgical History Past Surgical History: Yes Neuro Surgical History: No Pertinent History Cardiac: No Pertinent History Respiratory: No Pertinent History Gastrointestinal: Appendectomy Genitourinary: No Pertinent History Musculoskeletal: Orthopedic Surgery Male Surgical History: No Pertinent History Other Surgical History: rt foot 2nd toe - Social History Smoking Status: Current every day smoker How long have you smoked: 16yrs Exposure to second hand smoke: Yes Drug Use: marijuana Patient Lives Alone: No Significant Family History: no pertinent family hx - Nursing Vital Signs Nursing Vital Signs: Initial Vital Signs Temperature 98 F 06/09/23 11:59 Pulse Rate 84 06/09/23 11:59 Respiratory Rate 16 06/09/23 11:59 Blood Pressure 134/64 06/09/23 11:59 O2 Sat by Pulse Oximetry 99 06/09/23 11:59 Pain Scale Pain Intensity 3 WNL - Circle Coma Score Best Eye Response (Justa): (4) open spontaneously Best Verbal Response (Justa): (5) oriented Best Motor Response (Justa): (6) obeys commands Justa Total: 15 - Physical Exam General Appearance: no apparent distress Head Injury: lacerations (1cm superficial glabellar laceration) Eye Exam: bilateral eye: normal inspection, PERRL, EOMI ENT Exam: airway nml, No evidence of ENT injury, No clear fluid (ears), No clear fluid (nose) Neck Exam: supple, trachea midline, normal inspection (C-spine NTTP) Cardiovascular/Respiratory Exam: chest non-tender, normal breath sounds, regular rate/rhythm, heart sounds normal Gastrointestinal/Abdominal Exam: soft, non tender, no distention Back Exam: normal inspection, No vertebral tenderness Extremity Exam: non-tender, normal range of motion, normal inspection, normal capillary refill Mental Status Exam: alert, oriented x 3, cooperative copra processor Exam: normal hearing, normal speech, PERRL, No abnormal eye position, No abnormal gag reflex Coordination/Gait Exam: normal gait, normal cerebellar function Motor/Sensory Exam: no motor deficit, no sensory deficit, no pronator drift, negative Babinski's sign DTR Exam: bicep (R): 2+, bicep (L): 2+ Skin Exam: normal color, warm, dry Lymphatic Exam: No adenopathy SpO2 Interpretation: normal SpO2: 99 O2 Delivery: Room Air Procedures - Laceration/Wound Repair Face Wound Location: forehead Wound Length (cm): 1 Wound's Depth, Shape: superficial Wound Explored: clean Hibiclens Prep: Yes Wound Repaired With: Dermabond - Course Nursing assessment & vital signs reviewed: Yes Ordered Tests: Active Orders 24 hr Category Date Time Status Wound Care STAT Care 06/09/23 12:21 Active Medication Summary Discontinued Medications Generic Name Dose Route Start Last Admin Trade Name Lukas PRN Reason Stop Dose Admin Diphtheria/Tetanus/Acell Pertussis 0.5 ml 06/09/23 12:04 06/09/23 12:15 Tdap --Diph,Pertuss(Acell),Tet Vac/Pf 0.5 Ml Vial IM 06/09/23 12:05 0.5 ml .ONCE ONE Administration Diphtheria/Tetanus/Acell Pertussis Confirm 06/09/23 12:12 Tdap --Diph,Pertuss(Acell),Tet Vac/Pf 0.5 Ml Vial Administered 06/09/23 12:13 Dose 0.5 ml IM .STK-MED ONE - Progress Progress Note: 06/09/23 12:32 Nursing note and vital signs reviewed No food or housing insecurities noted Serial neuro exams WNL Additional history per mother Tdap given GCS15 during entire visit 06/09/23 12:33 Counseled pt/family regarding: need for follow-up Medical Desision Making - Independent Historian Additional History obtained from: Mother - Risk of complications Low Risk: Low risk of morbidity from additional dx testing or treatment - Departure Departure Disposition: Home Clinical Impression: Simple laceration of forehead, Minor head injury Condition: Stable Critical Care Time: No Referrals: ROBIN BURGER [Primary Care Provider] - Follow up/PCP as directed Instructions: Laceration Repair With Glue (DC), Head Injury in Adults (DC) Additional Instructions: Follow up with your family MD as needed Return to ER increasing redness/any pus/increasing pain/confusion/focal weakness
== END 2023-06-09 12:27 | disposition home or self-care (01) ==
LOC: ED 11:53
DX: S01.81XA Laceration without foreign body of other part of head, initial encounter (principal); W22.09XA Striking against other stationary object, initial encounter; W45.0XXA Nail entering through skin, initial encounter; Y93.H3 Activity, building and construction; Z28.310 Unvaccinated for COVID-19; Z72.0 Tobacco use; Z23 Encounter for immunization
CPT/HCPCS: 12011; 90471; 90715; 99282

== ENCOUNTER 2024-12-15 16:03 | Emergency (ER) | payer OTHER ==
[2024-12-15 16:24] VITALS: BP 115/74; PULSE 67; RESP 16; TEMP 97.4; O2SAT 100
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
== END 2024-12-15 17:12 | disposition home or self-care (01) ==
LOC: ED 16:03
DX: S80.02XA Contusion of left knee, initial encounter (principal); W20.8XXA Other cause of strike by thrown, projected or falling object, initial encounter; Z79.899 Other long term (current) drug therapy; Z72.0 Tobacco use
CPT/HCPCS: 99283

== ENCOUNTER 2025-01-29 05:25 | Emergency (ER) | payer OTHER ==
[2025-01-29 05:39] VITALS: RESP 20; TEMP 98
[2025-01-29] MEDS ORDERED: DELTASONE 20 MG ONE (05:51)
[2025-01-29] MEDS: DELTASONE 20 MG PO ONE (05:52)
--- NOTE | 2025-01-29 05:54 | ERPHSYRPT ---
- History of Present Illness Time Seen by Provider: 01/29/25 05:49 Source: patient Exam Limitations: no limitations Patient Subjective Stated Complaint: pt states that he woke up coughing this morning. pt states he has congestion. pt states he was around someone with the f vivian Triage Nursing Assessment: pt ambulated into the er; pt is axo x4; c/o cough; pt states 5/10 to throat; dry hacking cough present; clear lung sounds in all lobes; no respiratory distress present; skin PDW; hypertensive Physician History: Patient is a 29-year-old smoker presents to our ED for evaluation of cough shortness of breath chest pain and sore throat. Patient believes he has a virus infection. He reports he was exposed to influenza A. Patient is chest pain described as a substernal pressure. Patient believes he is "congested". No active shortness of breath at rest. Patient reports he was at home sleeping. Patient awoke with shortness of breath and a cough. Patient states he coughed up what appears to be a "ball of mucus". No fever. No nausea no vomiting no diarrhea no rash. Symptoms are mild to moderate in intensity. No specific worsening or improving factors. Patient otherwise feels well. He voices no other complaints or concerns at this time. Portions of this note were created with voice recognition technology. There may be grammatical, spelling, punctuation or sound alike errors Timing/Duration: today Severity: moderate Associated Symptoms: shortness of breath, cough, other (Chest pressure) Allergies/Adverse Reactions: No Known Drug Allergies Allergy (Verified 01/29/25 05:30) Hx Tetanus, Diphtheria Vaccination/Date Given: Yes Hx Influenza Vaccination/Date Given: No Hx Pneumococcal Vaccination/Date Given: No Travel Risk - International Travel Have you traveled outside of the country in past 3 weeks: No - Emerging Infectious Disease Are you exhibiting symptoms associated with any current EIDs: Yes Symptoms: Cough: New Onset - Review of Systems Constitutional: No Symptoms, No Fever, No Chills Eyes: No Symptoms Ears, Nose, & Throat: No Symptoms Respiratory: No Symptoms, No Cough, No Dyspnea Cardiac: No Symptoms, No Chest Pain, No Edema, No Syncope Abdominal/Gastrointestinal: No Symptoms, No Abdominal Pain, No Nausea, No Vomiting, No Diarrhea Genitourinary Symptoms: No Symptoms, No Dysuria Musculoskeletal: No Symptoms, No Back Pain, No Neck Pain Skin: No Symptoms, No Rash Neurological: No Symptoms, No Dizziness, No Focal Weakness, No Sensory Changes Psychological: No Symptoms Endocrine: No Symptoms Hematologic/Lymphatic: No Symptoms Immunological/Allergic: No Symptoms All Other Systems: Reviewed and Negative - Past Medical History Pertinent Past Medical History: Yes Neurological History: No Pertinent History ENT History: No Pertinent History Cardiac History: No Pertinent History Respiratory History: No Pertinent History Endocrine Medical History: No Pertinent History Musculoskeletal History: No Pertinent History, Fractures GI Medical History: No Pertinent History History: No Pertinent History Psycho-Social History: Depression Male Reproductive Disorders: No Pertinent History Other Medical History: 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 wrist fx. R 2nd toe fx in 2018 - Past Surgical History Past Surgical History: Yes Neuro Surgical History: No Pertinent History Cardiac: No Pertinent History Respiratory: No Pertinent History Gastrointestinal: Appendectomy Genitourinary: No Pertinent History Musculoskeletal: Orthopedic Surgery Male Surgical History: No Pertinent History Other Surgical History: rt foot 2nd toe Significant Family History: no pertinent family hx - Social History Smoking Status: Current every day smoker Exposure to second hand smoke: Yes Drug Use: marijuana - Social Determinants of Health Will the patient participate in the screening: Yes Do you worry about a steady place to live?: No Do you have any problems with any of the following?: No known problems In the past 12 months,have you had to go without utilities?: No Transportation Issues: No Has anyone in your support network made you feel unsafe?: No Have you or anyone in your house had to go w/o enough food: No - Nursing Vital Signs Nursing Vital Signs: Initial Vital Signs Pulse Rate 76 01/29/25 05:30 Blood Pressure 150/76 01/29/25 05:30 O2 Sat by Pulse Oximetry 99 01/29/25 05:30 Pain Scale Pain Intensity 5 - Physical Exam General Appearance: no apparent distress, alert Eye Exam: PERRL/EOMI, eyes nml inspection Ears, Nose, Throat Exam: normal ENT inspection, TMs normal, pharynx normal, moist mucous membranes Neck Exam: normal inspection, non-tender, supple, full range of motion Respiratory Exam: normal breath sounds, lungs clear, airway intact, No respiratory distress Cardiovascular Exam: regular rate/rhythm, normal heart sounds, normal peripheral pulses Gastrointestinal/Abdomen Exam: soft, normal bowel sounds, No tenderness, No mass Back Exam: normal inspection, normal range of motion, No CVA tenderness, No vertebral tenderness Extremity Exam: normal inspection, normal range of motion, pelvis stable Neurologic Exam: alert, oriented x 3, cooperative, normal mood/affect, sensation nml, No motor deficits Skin Exam: normal color, warm, dry, No rash Lymphatic Exam: No adenopathy SpO2 Interpretation: normal SpO2: 100 O2 Delivery: Room Air - Course Nursing assessment & vital signs reviewed: Yes EKG Interpreted by Me: RATE (75), Sinus Rhythm, NORMAL AXIS, NORMAL INTERVALS, NORMAL QRS - Radiology Exams Chest X-ray Interpretation: Teleradiologist Report (No acute findings) Ordered Tests: Active Orders 24 hr Category Date Time Status EKG-ER Only STAT Care 01/29/25 05:45 Active Pulse Oximetry (ED) STAT Care 01/29/25 05:45 Active CHEST 1 VIEW (PORTABLE) Stat Exams 01/29/25 05:46 Completed CBC W DIFF Stat Lab 01/29/25 06:09 Completed CMP Stat Lab 01/29/25 06:09 Completed D-DIMER QUANTITATIVE Stat Lab 01/29/25 06:09 Completed TROPONIN Q4H Lab 01/29/25 06:09 Completed TROPONIN Q4H Lab 01/29/25 10:00 Ordered TROPONIN Q4H Lab 01/29/25 14:00 Ordered Medication Summary Discontinued Medications Generic Name Dose Route Start Last Admin Trade Name Freq PRN Reason Stop Dose Admin Prednisone 60 mg 01/29/25 05:48 01/29/25 05:52 Prednisone 20 Mg Tablet PO 01/29/25 05:49 60 mg STAT ONE Administration Prednisone Confirm 01/29/25 05:51 Prednisone 20 Mg Tablet Administered 01/29/25 05:52 Dose 60 mg .ROUTE .STK-MED ONE Lab/Rad Data: Laboratory Result Diagrams 01/29/25 06:09 01/29/25 06:09 Laboratory Results 01/29/25 01/29/25 01/29/25 Range/Units 06:09 06:09 06:09 WBC (4.23-9.07) x10^3/uL RBC (4.63-6.08) x10^6/uL Hgb (13.7-17.5) g/dL Hct (40.1-51.0) % MCV (79.0-92.2) fL MCH (25.7-32.2) pg MCHC (32.3-36.5) g/dL RDW (11.6-14.4) % Plt Count (163-337) x10^3/uL MPV (9.4-12.4) fL Gran % (34.0-67.9) % Immature Gran % (Auto) (0.001-0.429) % Nucleat RBC Rel Count (0.00-0.2) % Eos # (Auto) (0.04-0.54) x10^3/uL Immature Gran # (Auto) (0.001-0.031) x10^3u/L Absolute Lymphs (auto) (1.32-3.57) x10^3/uL Absolute Monos (auto) (0.30-0.82) x10^3/uL Absolute Nucleated RBC (0.00-0.012) x10^3u/L Lymphocytes % (21.8-53.1) % Monocytes % (5.3-12.2) % Eosinophils % (0.8-7.0) % Basophils % (0.2-1.2) % Absolute Granulocytes (1.78-5.38) x10^3/uL Basophils # (0.01-0.08) x10^3/uL D-Dimer < 0.19 (0.0-0.50) mg/L Sodium (135-145) mmol/L Potassium (3.5-5.1) mmol/L Chloride (98-107) mmol/L Carbon Dioxide (22-30) mmol/L Anion Gap (5-15) MEQ/L BUN (9-20) mg/dL Creatinine (0.66-1.25) mg/dL Estimated GFR ML/MIN Glucose (74-106) mg/dL Calcium (8.4-10.2) mg/dL Total Bilirubin (0.2-1.3) mg/dL AST (17-59) U/L ALT (0-50) U/L Alkaline Phosphatase (38-126) U/L Troponin I < 0.012 (0.000-0.033) ng/mL Serum Total Protein (6.3-8.2) g/dL Albumin (3.5-5.0) g/dL Influenza Type A Ag (NEGATIVE) Influenza Type B Ag (NEGATIVE) RSV (PCR) (NEGATIVE) SARS-CoV-2 (PCR) (NEGATIVE) Group A Strep Antibody NOT DETECTED (NEGATIVE) 01/29/25 01/29/25 01/29/25 Range/Units 06:09 06:09 05:38 WBC 8.5 (4.23-9.07) x10^3/uL RBC 5.31 (4.63-6.08) x10^6/uL Hgb 15.7 (13.7-17.5) g/dL Hct 46.9 (40.1-51.0) % MCV 88.3 (79.0-92.2) fL MCH 29.6 (25.7-32.2) pg MCHC 33.5 (32.3-36.5) g/dL RDW 13.0 (11.6-14.4) % Plt Count 217 (163-337) x10^3/uL MPV 11.4 (9.4-12.4) fL Gran % 56.2 (34.0-67.9) % Immature Gran % (Auto) 0.2 (0.001-0.429) % Nucleat RBC Rel Count 0.0 (0.00-0.2) % Eos # (Auto) 0.23 (0.04-0.54) x10^3/uL Immature Gran # (Auto) 0.02 (0.001-0.031) x10^3u/L Absolute Lymphs (auto) 2.61 (1.32-3.57) x10^3/uL Absolute Monos (auto) 0.77 (0.30-0.82) x10^3/uL Absolute Nucleated RBC 0.00 (0.00-0.012) x10^3u/L Lymphocytes % 30.6 (21.8-53.1) % Monocytes % 9.0 (5.3-12.2) % Eosinophils % 2.7 (0.8-7.0) % Basophils % 1.3 H (0.2-1.2) % Absolute Granulocytes 4.80 (1.78-5.38) x10^3/uL Basophils # 0.11 H (0.01-0.08) x10^3/uL D-Dimer (0.0-0.50) mg/L Sodium 145 (135-145) mmol/L Potassium 3.5 (3.5-5.1) mmol/L Chloride 103 (98-107) mmol/L Carbon Dioxide 30 (22-30) mmol/L Anion Gap 15.7 H (5-15) MEQ/L BUN 8 L (9-20) mg/dL Creatinine 0.85 (0.66-1.25) mg/dL Estimated GFR 119.9 ML/MIN Glucose 53 L (74-106) mg/dL Calcium 9.6 (8.4-10.2) mg/dL Total Bilirubin 0.40 (0.2-1.3) mg/dL AST 38 (17-59) U/L ALT 30 (0-50) U/L Alkaline Phosphatase 40 (38-126) U/L Troponin I (0.000-0.033) ng/mL Serum Total Protein 8.0 (6.3-8.2) g/dL Albumin 5.1 H (3.5-5.0) g/dL Influenza Type A Ag NEGATIVE (NEGATIVE) Influenza Type B Ag NEGATIVE (NEGATIVE) RSV (PCR) NEGATIVE (NEGATIVE) SARS-CoV-2 (PCR) NEGATIVE (NEGATIVE) Group A Strep Antibody (NEGATIVE) - Progress Progress: improved Progress Note: 29-year-old male presents to our ED for evaluation of cough congestion shortness of breath and chest pain. Laboratory workup essentially nonremarkable. Troponin negative. D-dimer negative. Chest x-ray negative. EKG normal sinus rhythm. Patient received a dose of prednisone in our ED. A prescription for prednisone and azithromycin forwarded to patient's pharmacy. RSV influenza COVID-negative. Patient experiencing bronchitis. No indication for further workup will discharge home. Plan of care discussed with patient. He agrees to follow-up with primary care doctor within 48 hours for reevaluation. Mother at bedside. They voiced no other complaints or concerns at this time. Work note provided per patient request as patient missed work today. Portions of this note were created with voice recognition technology. There may be grammatical, spelling, punctuation or sound alike errors Complexity of problem addressed is moderate acute complicated. No critical care time. Complex of data reviewed and analyzed as moderate. Test ordered chest reviewed results analyzed and correlated clinically with history and physical exam. Risk of complication and or risk of morbidity/mortality of patient management is moderate. A prescription for azithromycin and prednisone forwarded to patient's pharmacy. Vital stable. Time spent to discharge patient is approximately 10 minutes. Plan of care established for shared decision making. No social determinants of health present to impede follow-up. Portions of this note were created with voice recognition technology. There may be grammatical, spelling, punctuation or sound alike errors 01/29/25 06:49 Counseled pt/family regarding: lab results, diagnosis, need for follow-up, rad results - Departure Departure Disposition: Home Clinical Impression: URI (upper respiratory infection), Cough, Bronchitis Condition: Stable Critical Care Time: No Referrals: TRINH BURGER [Primary Care Provider] - Follow up/PCP as directed Instructions: Bronchitis in adults - ED discharge instructions, Cough in adults - ED discharge instructions, Upper respiratory infection in adults - ED discharge instructions Additional Instructions: Discharge/Care Plan GERDA WEBER was seen on 01/29/25 in the Emergency Room. The patient was counseled regarding Diagnosis,Lab results, Imaging studies, need for follow up and when to return to the Emergency Room. Prescriptions given: Discharge Note I have spoken with the patient and/or caregivers. I have explained the patient's condition, diagnosis and treatment plan based on the information available to me at this time. I have answered the patient's and/or caregiver's questions and addressed any concerns. The patient and/or caregivers have as good understanding of the patient's diagnosis, condition and treatment plan as can be expected at this point. The vital signs have been stable. The patient's condition is stable and appropriate for discharge from the emergency department. The patient will pursue further outpatient evaluation with the primary care physician or other designated or consulting physician as outlined in the discharge instructions. The patient and/or caregivers are agreeable to this plan of care and follow-up instructions have been explained in detail. The patient and/or caregivers have received these instruction. The patient/and or caregivers are aware that any significant change in condition or worsening of symptoms should prompt an immediate return to this or the closest emergency department or call 911. Forms: Work/School Release Form Prescriptions: Prednisone 10 mg [Deltasone 10 mg] 40 mg PO DAILY 3 Days #12 tablet Azithromycin 250 mg [Zithromax 250 MG TABLET] 250 mg PO ZPACK #6 tablet
[2025-01-29 06:11] LABS: BASOPHIL % 1.3 % (0.2-1.2); Basophil (Absolute #) 0.11 x10^3/uL (0.01-0.08); Eosinophil % 2.7 % (0.8-7.0); Eosinophil (Absolute #) 0.23 x10^3/uL (0.04-0.54); Hematocrit 46.9 % (40.1-51.0); Hemoglobin 15.7 g/dL (13.7-17.5); IMMATURE GRAN # 0.02 x10^3u/L (0.001-0.031); IMMATURE GRAN % 0.2 % (0.001-0.429); Lymphocyte (Absolute #) 2.61 x10^3/uL (1.32-3.57); Lymphocytes % 30.6 % (21.8-53.1); Mean Cell Volume 88.3 fL (79.0-92.2); Mean Corpuscular Hemoglobin 29.6 pg (25.7-32.2); Mean Corpuscular Hgb Concent. 33.5 g/dL (32.3-36.5); Mean Platelet Volume 11.4 fL (9.4-12.4); Monocyte (Absolute #) 0.77 x10^3/uL (0.30-0.82); Neutrophil % 56.2 % (34.0-67.9); Platelet Count 217 x10^3/uL (163-337); Red Blood Count 5.31 x10^6/uL (4.63-6.08); White Blood Count 8.5 x10^3/uL (4.23-9.07)
[2025-01-29 06:15] LABS: INFLUENZA A NEGATIVE (NEGATIVE); INFLUENZA B NEGATIVE (NEGATIVE); RESPIRATORY SYNCTIAL VIRUS NEGATIVE (NEGATIVE); SARS-CoV-2 Xpert Express NEGATIVE (NEGATIVE)
[2025-01-29 06:28] LABS: ALBUMIN 5.1 g/dL (3.5-5.0); ANION GAP 15.7 MEQ/L (5-15); BILIRUBIN,TOTAL 0.4 mg/dL (0.2-1.3); Calcium 9.6 mg/dL (8.4-10.2); Creatinine 1 0.85 mg/dL (0.66-1.25); EST GLOMERULAR FILTRATION RATE 119.9 ML/MIN; Potassium 3.5 mmol/L (3.5-5.1)
[2025-01-29 06:35] VITALS: BP 120/72; PULSE 55
--- NOTE | 2025-01-29 06:36 | XRAY ---
CLINICAL HISTORY: cough COMPARISON: 02/13/2024 DX. TECHNIQUE: X-ray of the chest in PA view. FINDINGS: Stable hyperinflated lungs. There is no evidence of any focal area of consolidation. Normal configuration of the mediastinum. The deep are normal in size and position. The cardiac size is normal. The costophrenic and cardiophrenic angles are clear. The bony thorax was unremarkable. IMPRESSION: 1. No acute cardiopulmonary disease process is noted. Stable hyperinflated lungs. 2. No interval changes. Electronically Signed by: Suad Carvalho MD. (01/29/2025 06:32:45 EDT)
[2025-01-29 06:43] VITALS: O2SAT 100
== END 2025-01-29 06:52 | disposition home or self-care (01) ==
LOC: ED 05:25
DX: J06.9 Acute upper respiratory infection, unspecified (principal); R05.1 Acute cough; J40 Bronchitis, not specified as acute or chronic; R06.02 Shortness of breath; R07.9 Chest pain, unspecified; Z79.52 Long term (current) use of systemic steroids; Z79.899 Other long term (current) drug therapy; Z72.0 Tobacco use
CPT/HCPCS: 0241U; 36415; 71045; 80053; 84484; 85025; 85379; 87651; 93005; 94760; 99285; 99284; A9270-GY